=== PATIENT | male | born 1955 | race African-American/Black ===

== ENCOUNTER 2017-06-25 12:37 | Inpatient (IN) | payer BC, OTHER ==
--- NOTE | 2017-06-25 13:10 | PDOC ---
History of Present Illness - General Chief Complaint: Edema Stated Complaint: GROIN PROBLEM Time Seen by Provider: 06/25/17 13:07 - History of Present Illness Initial Comments: 06/25/17 13:11 62 yo M with h/o HTN, DM, asthma, arthritis, Hep C, alcohol dependence, and seizure disorder who presents with lower extremity swelling. Patient reports 3 days BL LE swelling and testicular swelling, and. LE pain worse with ambulation. Denies N/V, fevers/chills, cough, worsening SOB, lightheadedness, new onset sensory changes, urinary, or bowel/adbominal complaints. Also reports falling yesterday while ambulating with cane and landing on left side and head. Denies VEE, laceration, bleeding, vision change, neck pain, neck stiffness, sensory disturbances, weakness. H/o Hep C not on medication. H/o choleycystecotmy. Endorses h/o IV Heroine use 30 years ago. 1/4 PPD tobacco use 50 years. 1/2-1 pint vodka per day for [address] Hernandez PCP Past History - Past Medical History Allergies/Adverse Reactions: Allergies Allergy/AdvReac Type Severity Reaction Status Date / Time fish derived Allergy Severe Difficulty Verified 06/25/17 17:17 Breathing shellfish derived Allergy Severe Difficulty Verified 06/25/17 17:17 Breathing No Known Drug Allergies Allergy Verified 06/25/17 10:10 Penicillins Allergy Verified 06/25/17 12:55 seafood Allergy Severe Difficulty Uncoded 06/25/17 10:09 Breathing Home Medications: Ambulatory Orders Albuterol Sulfate [Proventil HFA Inhaler -] 1 - 2 inh PO QID PRN 06/25/17 Amlodipine Besylate [Norvasc -] 10 mg PO DAILY 06/25/17 Aspirin [Aspirin EC] 325 mg PO DAILY 06/25/17 Gabapentin 300 mg PO HS 06/25/17 Hydrochlorothiazide [Hctz -] 12.5 mg PO DAILY 06/25/17 Hydroxyzine HCl [Atarax -] 50 mg PO HS PRN 06/25/17 Levetiracetam [Keppra -] 500 mg PO BID 06/25/17 Losartan Potassium [Cozaar -] 100 mg PO DAILY 06/25/17 Methadone [Dolophine -] 30 mg PO DAILY 06/25/17 Tamsulosin HCl [Flomax] 0.4 mg PO DAILY 06/25/17 Trazodone HCl [Desyrel -] 100 mg PO HS 06/25/17 Anemia: No Asthma: Yes Cancer: No Cardiac Disorders: No CVA: No COPD: No CHF: No DVT: No Dementia: No Diabetes: No GI Disorders: No Disorders: No HTN: Yes Hypercholesterolemia: No Kidney Stones: No Liver Disease: No Seizures: Yes (11/2 YRS AGO) Thyroid Disease: No - Surgical History Cholecystectomy: Yes - Reproductive History Testicular Surgery: No - Suicide/Smoking/Psychosocial Hx Smoking History: Current every day smoker Have you smoked in the past 12 months: Yes Number of Cigarettes Smoked Daily: 4 Information on smoking cessation initiated: No 'Breaking Loose' booklet given: 06/25/17 Hx Alcohol Use: Yes Drug/Substance Use Hx: No (past on methadone) Substance Use Type: Alcohol Hx Substance Use Treatment: Yes Review of Systems - Review of Systems Comments:: 06/25/17 13:09 GENERAL/CONSTITUTIONAL: No fever or chills. No weakness. HEAD, EYES, EARS, NOSE AND THROAT: No change in vision. No ear pain or discharge. No sore throat.- CARDIOVASCULAR: No chest pain or shortness of breath RESPIRATORY: No cough, wheezing, or hemoptysis. GASTROINTESTINAL: No nausea, vomiting, diarrhea or constipation. GENITOURINARY: + Testicular swelling. No dysuria, frequency, or change in urination. MUSCULOSKELETAL: BL knee pain/swelling. No neck or back pain. SKIN: No rash NEUROLOGIC: No headache, vertigo, loss of consciousness, or change in strength/ sensation. ENDOCRINE: No increased thirst. No abnormal weight change HEMATOLOGIC/LYMPHATIC: No anemia, easy bleeding, or history of blood clots. ALLERGIC/IMMUNOLOGIC: No hives or skin allergy. *Physical Exam - Vital Signs Last Vital Signs Temp Pulse Resp BP Pulse Ox 98.3 F 100 H 20 148/97 93 L 06/25/17 12:55 06/25/17 12:55 06/25/17 12:55 06/25/17 12:55 06/25/17 12:55 - Physical Exam Comments: 06/25/17 13:09 GENERAL: Awake, alert, and fully oriented, in no acute distress HEAD: No signs of trauma, normocephalic, atraumatic EYES:+ Scleral icterus. PERRLA, EOMI, conjunctiva clear ENT: Hearing grossly normal, nares patent, oropharynx clear without exudates. Moist mucosa NECK: Normal ROM, supple, no lymphadenopathy, JVD, or masses LUNGS: +BL lower lung garcia coarse lung sounds. + Expiratory wheezing diffusely. No distress, speaks full sentences, clear to auscultation bilaterally HEART: Regular rate and rhythm, normal S1 and S2, no murmurs, rubs or gallops, peripheral pulses normal and equal bilaterally. ABDOMEN: Distended, soft, nontender, normoactive bowel sounds. No guarding, no rebound. No masses : + Scrotal swelling and painful to palpation. No genital lesions visualized. Absent inguinal lymphadenopathy. EXTREMITIES : + BL LE pitting edema from inguinal region/scrotum to ankles circumferentially. Normal inspection, Normal range of motion, no edema. No clubbing or cyanosis. SKIN: Dry, and scaly skin, normal turgor, no rashes or lesions noted. ED Treatment Course - LABORATORY CBC & Chemistry Diagram: 06/26/17 06:40 06/25/17 16:45 Medical Decision Making - Medical Decision Making 06/25/17 15:30 62 yo M with h/o HTN, DM, asthma, arthritis, Hep C, alcohol dependence, and seizure disorder who presents w/ 3 days BL LE and testicular swelling and pain. LE pain worse with ambulation. Denies N/V, fevers/chills, cough, worsening SOB, lightheadedness, new onset sensory changes, urinary, or bowel/adbominal complaints. 1/2-1 pint vodka per day for 14 years with last drink yesterday. Physical exam with scleral icetrus, distended abdomen, pitting edema in BL LE extending in circumferential pattern from inguinal region/scrotum to BL ankles. lungs with coarse lungs sounds at BL lung bases and diffuse exp wheezing. Slightly hypoxic on RA 93 %. Patient s/s consistent with fluid overload 2/2 hepatitis/hypoalbunemia vs. alcoholic cirrhosis, vs. CHF. Patient h/o alcohol dependence, physical exam findings sclearl icterus, diustended abdomen, skin changes, and swelling consistent with hepatic etiology. ED Course: CBC, CMP, Trop, BNP, Cardiac profile EKG, CXR Methadone 30 mg PO CXR: Linear atelectasis in BL lung bases. No acute findings. 06/25/17 15:38 UA: Neg 06/25/17 18:05 BNP: 335.76 *DC/Admit/Observation/Transfer Diagnosis at time of Disposition: Testicle swelling - Discharge Dispostion Condition at time of disposition: Stable Admit: Yes - Referrals - Patient Instructions - Post Discharge Activity
[2017-06-25] MEDS ORDERED: METHADONE HCL 10 MG TABLET PO ONE (14:57)
[2017-06-25] MEDS ORDERED: METHADONE HCL 10 MG TABLET ONE (14:58)
[2017-06-25 15:06] LABS: URINE APPEARANCE CLEAR; URINE BILIRUBIN NEGATIVE (NEGATIVE); URINE BLOOD NEGATIVE (NEGATIVE); URINE COLOR YELLOW; URINE GLUCOSE (UA) NEGATIVE (NEGATIVE); URINE KETONE NEGATIVE (NEGATIVE); URINE LEUK ESTERASE NEGATIVE (NEGATIVE); URINE NITRITE NEGATIVE (NEGATIVE)
[2017-06-25 15:07] LABS: URINE PROTEIN 3+ (NEGATIVE)
[2017-06-25 15:09] LABS: URINE MUCUS RARE
--- NOTE | 2017-06-25 15:46 | PDOC ---
Attending Attestation - Resident Resident Name: Alec Lugo - ED Attending Attestation I have performed the following: I have examined & evaluated the patient, The case was reviewed & discussed with the resident, I agree w/resident's findings & plan, Exceptions are as noted - HPI HPI: 06/25/17 14:59 62yo M hx HTN, DM, asthma, HCV not on treatment, etoh abuse, IVDU on methadone p /w b/l LE and scrotal swelling x 3 days. Reports pain with ambulation. Has no hx similar sxs. Denies fevers, chills, CP, SOB, abd pain, N/V/D, focal weakness , numbness, urinary complaints. Drinks 0.5-1 pint vodka daily, last drink was yesterday. - Physicial Exam PE: 06/25/17 15:01 GENERAL: Awake, alert, and fully oriented, in no acute distress HEAD: No signs of trauma EYES: PERRLA, EOMI, sclera anicteric, conjunctiva clear ENT: Auricles normal inspection, hearing grossly normal, nares patent, oropharynx clear without exudates. Moist mucosa NECK: Normal ROM, supple, no lymphadenopathy, JVD, or masses LUNGS: Breath sounds equal, clear to auscultation bilaterally. No wheezes, and no crackles HEART: Regular rate and rhythm, normal S1 and S2, no murmurs, rubs or gallops ABDOMEN: Soft, nontender, normoactive bowel sounds. No guarding, no rebound. No masses : b/l scrotal edema with no ttp EXTREMITIES: Normal range of motion, b/l 2+ pitting LE edema, L>R with mild erythema and warmth, 2+ DP pulse and TP pulse. NEUROLOGICAL: Normal speech, cranial nerves intact, negative pronator drift, 5/ 5 strength in all 4 extremities, normal sensation to light touch in all 4 extremities, normal cerebellar exam, normal reflexes and tone, gait deferred SKIN: Warm, Dry, normal turgor, no rashes or lesions noted. - Medical Decision Making 06/25/17 16:08 62-year-old male with multiple medical problems including alcohol abuse presents with 3 days of bilateral lower extremity edema and scrotal edema. Vitals remarkable for mild tachycardia on arrival to 100 but on my exam heart rate is 88. On exam the patient has 2+ pitting edema in the lower extremities left greater than right as well as scrotal edema. Differential is wide and includes edema due to CHF versus liver failure versus DVT.Plan: -labs -LE US -L knee XR -likely admit 06/25/17 20:10 Labs remarkable for creatinine of 1.8 patient reports no history of kidney problems. Labs also remarkable for hypoalbuminemia to 1.8 and mildly elevated BNP to the 300s. Ultrasound is negative for DVT. Edema possibly secondary to liver failure versus mild CHF. Will admit for further management and workup. Case discussed in detail with admitting physician Dr. Velazquez including history , physical exam and ancillary studies. Admitting physician has assumed care for the patient, will follow all pending diagnostics and will complete the evaluation and treatment.
[2017-06-25 17:26] LABS: ALBUMIN 1.8 g/dl (3.4-5.0); ANION GAP 4 (8-16); BLOOD UREA NITROGEN 30 mg/dL (7-18); CALCIUM 7.3 mg/dL (8.5-10.1); CHLORIDE 105 mmol/L (98-107); CO2 32 mmol/L (21-32); CREATININE 1.8 mg/dL (0.7-1.3); GLUCOSE,RANDOM 73 mg/dL (74-106); N-TERMINAL BNP 335.76 pg/ml (5-125); POTASSIUM 4.5 mmol/L (3.5-5.1); SGPT/ALT 58 U/L (12-78); SODIUM 141 mmol/L (136-145)
[2017-06-25 17:33] LABS: ALK PHOS 130 U/L (45-117); BILIRUBIN,TOTAL 0.6 mg/dL (0.2-1.0); SGOT/AST 91 U/L (15-37); TOT PROT 6.3 g/dl (6.4-8.2)
[2017-06-25 17:37] LABS: BASO % 0.2 % (0-2.0); EOS % 1.2 % (0-4.5); HEMATOCRIT 52.1 % (35.4-49); HEMOGLOBIN 16.1 GM/dL (11.7-16.9); LYMPH % 17.9 % (8-40); MCH 25.5 pg (25.7-33.7); MCHC 30.9 g/dl (32.0-35.9); MEAN CELL VOLUME 82.6 fl (80-96); MONO % 8.8 % (3.8-10.2); NEUT % 71.9 % (42.8-82.8); RBC 6.31 M/mm3 (4.00-5.60); RDW 20.1 % (11.9-15.9); WHITE BLOOD COUNT 8.7 K/mm3 (4.0-10.0)
[2017-06-25 17:39] LABS: ADD RBC MORPHOLOGY YES
[2017-06-25 18:22] LABS: MEAN PLT VOLUME 9.2 fl (7.5-11.1); PLATELET COUNT 168 K/MM3 (134-434)
[2017-06-25 18:23] LABS: ANISOCYTOSIS 1+; PLATELET ESTIMATE ADEQUATE
--- NOTE | 2017-06-25 20:03 | PN ---
Teaching Attending Note Name of Resident: Aissatou Gomes ATTENDING PHYSICIAN STATEMENT I saw and evaluated the patient. I reviewed the resident's note and discussed the case with the resident. I agree with the resident's findings and plan as documented. SUBJECTIVE: Patient presented to ED c/o b/l peripheral to scrotal edema from [facility]. Denies CP , SOB or prior episode. PMH: HCV, DM2, HTN and polysubstance abuse. OBJECTIVE: GEN: A&O x3 in NAD HEENT: PERRLA, EOMI no icteric sclera CVS: RRR, S1, S2 LUNG: CTA, no wheezing, tachypneic Abd: obese, BS+, accessory muscle , no fluid shift noted. Ext: b/l pitting edema : Scrotal edema CBC, BMP 06/25/17 16:45 06/25/17 16:45 ASSESSMENT AND PLAN: Fluid overload possibly secondary to cirrhosis secondary to Hepatitis C vs Alcoholic hepatitis. Diuresis with Lasix 40mg BID, Monitor I&Os, hepatitis panel , liver USG. CHF unlikely. MARCE vs CVD Urine electrolytes, and renal USG, repeat BMP in AM. CIWA , Thiamine, Folate and multivitamin. DVT prophylaxis, Heparin 5000 Units q8h. DM2 RISS, A1C
[2017-06-25] MEDS ORDERED: LORazepam 1 MG TABLET PO PRN (22:29)
[2017-06-25] MEDS ORDERED: ALBUTEROL SO4 18 GM HFA INHALER IH PRN (22:33)
[2017-06-25] MEDS ORDERED: hydrOXYzine HCL 25 MG TABLET (FP) PO PRN (22:33)
[2017-06-25 23:10] VITALS: BMI 26.2
[2017-06-25] MEDS: FUROSEMIDE 40 MG/4 ML INJECTABLE VIAL IVPUSH SCH (23:27)
[2017-06-25] MEDS: levETIRAcetam 500 MG TABLET (FP) PO SCH (23:27)
--- NOTE | 2017-06-26 02:47 | HP ---
CHIEF COMPLAINT: pedrito LE and scrotal swelling PCP: Dr. Hernandez HISTORY OF PRESENT ILLNESS: 62yo M with PMH of htn, DM, hep C (not yet treated), polysubstance abuse, presents c/o worsening pedrito LE and scrotal swelling x 1 day. Pt presented to [facility] today for detox from Xanax, and noticing this increasing edema prompted him to come to the ER. Pedrito LE and scrotum are now painful, worse with movement. Pain is described as a soreness, not sharp. Pt also reports a fall yesterday while walking with his cane. Pt denies LOC, but does report hitting his head hard. Pt reports he mis-stepped causing the fall. Pt denies sick contacts. ER course was notable for: (1) Methadone 30mg (2) Head CT (-) Recent Travel: denies PAST MEDICAL HISTORY: htn DM asthma arthritis Hep C seizure etoh dependence PAST SURGICAL HISTORY: cholecystectomy Social History: Smokin cigarettes daily x 50 yrs Alcohol: 1/2 - 1 pint vodka daily x 14 yrs Drugs: Xanax dependence, heroine 30 yrs ago Orientation: heterosexual Family History: dad - colon ca, passed at age 70's mom - DM, cardiac Allergies fish derived Allergy (Severe, Verified 06/25/17 17:17) Difficulty Breathing SEAFOOD = FISH + SHELLFISH shellfish derived Allergy (Severe, Verified 06/25/17 17:17) Difficulty Breathing SEAFOOD = FISH + SHELLFISH No Known Drug Allergies Allergy (Verified 06/25/17 10:10) Penicillins Allergy (Verified 06/25/17 12:55) seafood Allergy (Severe, Uncoded 06/25/17 10:09) Difficulty Breathing HOME MEDICATIONS: Home Medications Medication Instructions Recorded Albuterol Sulfate [Proventil HFA 1 - 2 inh PO QID PRN 06/25/17 Inhaler -] Amlodipine Besylate [Norvasc -] 10 mg PO DAILY 06/25/17 Aspirin [Aspirin EC] 325 mg PO DAILY 06/25/17 Gabapentin 300 mg PO HS 06/25/17 Hydrochlorothiazide [Hctz -] 12.5 mg PO DAILY 06/25/17 Hydroxyzine HCl [Atarax -] 50 mg PO HS PRN 06/25/17 Levetiracetam [Keppra -] 500 mg PO BID 06/25/17 Losartan Potassium [Cozaar -] 100 mg PO DAILY 06/25/17 Methadone [Dolophine -] 30 mg PO DAILY 06/25/17 Tamsulosin HCl [Flomax] 0.4 mg PO DAILY 06/25/17 Trazodone HCl [Desyrel -] 100 mg PO HS 06/25/17 REVIEW OF SYSTEMS CONSTITUTIONAL: Absent: fever, chills, diaphoresis, generalized weakness, malaise, loss of appetite, weight change HEENT: Absent: rhinorrhea, nasal congestion, throat pain, visual changes CARDIOVASCULAR: Absent: chest pain, syncope, palpitations, irregular heart rate, lightheadedness RESPIRATORY: Absent: cough, shortness of breath, wheezing, stridor, hemoptysis GASTROINTESTINAL: abdominal distention Absent: abdominal pain, nausea, vomiting, diarrhea, constipation, melena, hematochezia GENITOURINARY: Absent: dysuria, hematuria MUSCULOSKELETAL: pedrito knee pain and swelling L>R, Left hand joints painful 2/2 arthritis Absent: myalgia, back pain SKIN: Absent: rash, itching, pallor HEMATOLOGIC/IMMUNOLOGIC: Absent: easy bleeding, easy bruising NEUROLOGIC: Absent: headache, focal weakness or paresthesias, dizziness PHYSICAL EXAMINATION Vital Signs - 24 hr 06/25/17 06/25/17 06/25/17 12:55 17:48 17:50 Temperature 98.3 F 97.8 F Pulse Rate 100 H Pulse Rate [ 76 Right Radial] Respiratory 20 20 18 Rate Blood Pressure 148/97 Blood Pressure 143/97 [Left Arm] O2 Sat by Pulse 93 L 96 100 Oximetry (%) 06/25/17 22:35 Temperature 98.2 F Pulse Rate 97 H Pulse Rate [ Right Radial] Respiratory 18 Rate Blood Pressure 148/98 Blood Pressure [Left Arm] O2 Sat by Pulse 100 Oximetry (%) GENERAL: Awake, alert, and fully oriented, anxious. HEAD: Normal with no signs of trauma. EYES: Pupils equal, round and reactive to light, extraocular movements intact, sclera anicteric, conjunctiva clear. No lid lag. EARS, NOSE, THROAT: Ears normal, nares patent, oropharynx clear without exudates. Moist mucous membranes. NECK: Supple, trachea midline. LUNGS: Minimal diffuse wheezing. HEART: Regular rate and rhythm, normal S1 and S2 without murmur, rub or gallop. ABDOMEN: Distended. Soft, nontender, normoactive bowel sounds, no guarding. MUSCULOSKELETAL: Normal range of motion at all joints. No bony deformities or tenderness. LOWER EXTREMITIES: 1+ pitting edema L>R. 2+ pulses, warm, well-perfused. No calf tenderness. : +Scrotal swelling, tenderness to palpation. Slight excoriation of skin in Left fold between scrotum and leg. Testicles approximately equal in size on palpation. NEUROLOGICAL: Cranial nerves II-XII grossly intact. Normal speech. PSYCHIATRIC: Cooperative. Good eye contact. Appropriate mood and affect. SKIN: Warm, dry, normal turgor, no rashes or lesions noted. Laboratory Results - last 24 hr 06/25/17 06/25/17 06/25/17 13:40 16:45 16:45 WBC 8.7 RBC 6.31 H Hgb 16.1 Hct 52.1 H MCV 82.6 MCH 25.5 L MCHC 30.9 L RDW 20.1 H Plt Count 168 MPV 9.2 Neutrophils % 71.9 Lymphocytes % 17.9 Monocytes % 8.8 Eosinophils % 1.2 Basophils % 0.2 Platelet Estimate Adequate Platelet Comment Anisocytosis 1+ Sodium Potassium Chloride Carbon Dioxide Anion Gap BUN Creatinine Creat Clearance w eGFR POC Glucometer Random Glucose Calcium Total Bilirubin AST ALT Alkaline Phosphatase Creatine Kinase 62 Troponin I < 0.02 B-Natriuretic Peptide 335.76 H Total Protein Albumin Urine Color Yellow Urine Appearance Clear Urine pH 6.0 Ur Specific [place] 1.013 Urine Protein 3+ H Urine Glucose (UA) Negative Urine Ketones Negative Urine Blood Negative Urine Nitrite Negative Urine Bilirubin Negative Urine Urobilinogen 2.0 Ur Leukocyte Esterase Negative Urine WBC (Auto) 2 Urine RBC (Auto) 1 Urine Mucus Rare 06/25/17 06/25/17 16:45 22:54 WBC RBC Hgb Hct MCV MCH MCHC RDW Plt Count MPV Neutrophils % Lymphocytes % Monocytes % Eosinophils % Basophils % Platelet Estimate Platelet Comment Anisocytosis Sodium 141 Potassium 4.5 Chloride 105 Carbon Dioxide 32 Anion Gap 4 L BUN 30 H Creatinine 1.8 H Creat Clearance w eGFR 38.18 POC Glucometer 145 Random Glucose 73 L Calcium 7.3 L Total Bilirubin 0.6 AST 91 H ALT 58 Alkaline Phosphatase 130 H Creatine Kinase Troponin I B-Natriuretic Peptide Total Protein 6.3 L Albumin 1.8 L Urine Color Urine Appearance Urine pH Ur Specific [place] Urine Protein Urine Glucose (UA) Urine Ketones Urine Blood Urine Nitrite Urine Bilirubin Urine Urobilinogen Ur Leukocyte Esterase Urine WBC (Auto) Urine RBC (Auto) Urine Mucus IMAGIN06/25/17 CXR -> linear atelectasis and/or scarring in both lung bases. 06/25/[address] -> no acute intracranial pathology. ASSESSMENT/PLAN: 62yo M with PMH of htn, DM, hep C (not yet treated), polysubstance abuse, presents c/o worsening pedrito LE and scrotal swelling, admitted for fluid overload. # fluid overload - likely related to cirrhosis 2/2 hepatitis C vs alcoholic hepatitis. CHF unlikely. - Lasix 40mg IVpush BID - consider adding Spironolactone - I&O's - daily wts - f/u abdominal US - f/u Echo - f/u lipid panel - f/u GGTp # polysubstance abuse - continue Methadone - monitor for S/S of etoh withdrawal - CIWA score 9 -> Ativan prn added - Thiamine, folic acid and MVI added # MARCE vs CKD - baseline unknown - f/u urine electrolytes - f/u renal US # Hepatitis C - f/u Hep C serology; pt is ready to receive treatment if (+) # htn - continue home meds of Norvasc, Losartan, HCTZ # seizure - continue home med of Keppra # asthma - continue home med of Proventil # DM - BGMs ACHS - Novolog SSI - f/u Hgba1c - pt reports hx of peripheral neuropathy to pedrito feet -> continue Neurontin # depression - continue home med of Trazodone # FEN - Fluids: po - Electrolytes: wnl, continue to monitor - Nutrition: diabetic diet # Prophylaxis - DVT ppx with Heparin TID - deconditioning ppx with PT Visit type - Emergency Visit Emergency Visit: Yes ED Registration Date: 06/25/17 Care time: The patient presented to the Emergency Department on the above date and was hospitalized for further evaluation of their emergent condition. - New Patient This patient is new to me today: Yes Date on this admission: 06/26/17 - Critical Care Critical Care patient: No
[2017-06-26] MEDS: METHADONE HCL 10 MG TABLET PO SCH (06:38)
[2017-06-26] MEDS: HEPARIN NA (PORCINE) 5,000 UNITS/ML 1ML VIAL SQ SCH ×3 (06:38→22:09)
[2017-06-26] MEDS: FUROSEMIDE 40 MG/4 ML INJECTABLE VIAL IVPUSH SCH ×2 (06:39→16:06)
[2017-06-26] MEDS: INSULIN SLIDING SCALE (NOVOLOG) 1 VIAL SQ SCH ×4 (06:42→22:33)
[2017-06-26 07:27] LABS: BASO % 0.5 % (0-2.0); HEMATOCRIT 53.8 % (35.4-49); HEMOGLOBIN 16.5 GM/dL (11.7-16.9); LYMPH % 16.5 % (8-40); MCH 25.3 pg (25.7-33.7); MCHC 30.7 g/dl (32.0-35.9); MEAN CELL VOLUME 82.5 fl (80-96); MEAN PLT VOLUME 9.7 fl (7.5-11.1); MONO % 9.5 % (3.8-10.2); NEUT % 71.5 % (42.8-82.8); PLATELET COUNT 191 K/MM3 (134-434); RBC 6.52 M/mm3 (4.00-5.60); RDW 19.8 % (11.9-15.9); WHITE BLOOD COUNT 7.6 K/mm3 (4.0-10.0)
[2017-06-26 07:52] LABS: MAGNESIUM 1.2 mg/dL (1.8-2.4); PHOSPHOROUS 4.7 mg/dL (2.5-4.9)
[2017-06-26 08:05] LABS: INR 0.93 (0.82-1.09); PROTHROMBIN TIME (PATIENT) 10.5 SEC (9.98-11.88)
[2017-06-26 08:08] LABS: ACTIVATED PTT 39.9 SECONDS (26.9-34.4)
--- NOTE | 2017-06-26 09:53 | PN ---
Physical Exam: SUBJECTIVE: Patient seen and examined Partient is feeling better, denies having any abdominal and scrotal pain. C/o having left knee pain due to his fall. Patient was examined with a nurse present in the room (Lisa). Patient states that he fell, that why he has a knee pain. OBJECTIVE: Vital Signs Temperature 98.5 F 06/26/17 06:00 Pulse Rate 98 H 06/26/17 06:00 Respiratory Rate 18 06/26/17 06:00 Blood Pressure 141/84 06/26/17 06:00 O2 Sat by Pulse Oximetry (%) 98 06/25/17 22:36 GENERAL: The patient is awake, alert, and fully oriented, in no acute distress. HEAD: Normal with no signs of trauma. EYES: PERRL, extraocular movements intact, sclera anicteric, conjunctiva clear. No ptosis. ENT: Ears normal, nares patent, oropharynx clear without exudates, moist mucous membranes. NECK: Trachea midline, full range of motion, supple. LUNGS: Breath sounds equal, clear to auscultation bilaterally, no wheezes, no crackles, no accessory muscle use. HEART: Regular rate and rhythm, S1, S2 without murmur, rub or gallop. ABDOMEN: Soft, nontender, nondistended, normoactive bowel sounds, no guarding, no rebound, no hepatosplenomegaly, no masses. EXTREMITIES: 2+ pulses, warm, well-perfused, 2 plus edema left knee tender to touch NEUROLOGICAL: Cranial nerves II through XII grossly intact. Normal speech, gait not observed. PSYCH: Normal mood, normal affect. SKIN: Warm, dry, normal turgor, no rashes or lesions noted : No scrotal swelling noted Active Medications Generic Name Dose Route Start Last Admin Trade Name Freq PRN Reason Stop Dose Admin Albuterol Sulfate 2 puff 06/25/17 22:33 Ventolin Hfa Inhaler - IH Q6H PRN WHEEZING Amlodipine Besylate 10 mg 06/26/17 10:00 Norvasc - PO DAILY [facility] Aspirin 325 mg 06/26/17 10:00 Asa - PO DAILY [facility] Folic Acid 1 mg 06/26/17 10:00 Folic Acid - PO DAILY [facility] Furosemide 40 mg 06/25/17 22:30 06/26/17 06:39 Lasix Injection - IVPUSH 40 mg BID@0600,1400 [facility] Administration Gabapentin 300 mg 06/26/17 22:00 Neurontin - PO HS [facility] Heparin Sodium (Porcine) 5,000 unit 06/26/17 06:00 06/26/17 06:38 Heparin - SQ 5,000 unit TID [facility] Administration Hydrochlorothiazide 12.5 mg 06/26/17 10:00 Hctz - PO DAILY [facility] Hydroxyzine HCl 50 mg 06/25/17 22:33 Atarax - PO HS PRN itching Insulin Aspart 1 vial 06/26/17 07:00 06/26/17 06:42 Novolog Vial Sliding Scale - SQ Not Given ACHS [facility] Protocol Levetiracetam 500 mg 06/25/17 22:45 06/25/17 23:27 Keppra - PO 500 mg BID [facility] Administration Lorazepam 2 mg 06/25/17 22:29 Ativan - PO Q6H PRN WITHDRAWAL(CONT SUBST) Losartan Potassium 100 mg 06/26/17 10:00 Cozaar - PO DAILY [facility] Methadone HCl 30 mg 06/26/17 06:00 06/26/17 06:38 Dolophine - PO 30 mg DAILY@0600 [facility] Administration Multivitamins/Minerals/Vitamin C 1 tab 06/26/17 10:00 Tab-A-Vit - PO DAILY [facility] Tamsulosin HCl 0.4 mg 06/26/17 08:30 Flomax - PO DAILY@0830 [facility] Thiamine HCl 100 mg 06/26/17 10:00 Vitamin B1 - PO DAILY [facility] Trazodone HCl 100 mg 06/26/17 22:00 Desyrel - PO HS [facility] Home Medications Medication Instructions Recorded Albuterol Sulfate [Proventil HFA 1 - 2 inh PO QID PRN 06/25/17 Inhaler -] Amlodipine Besylate [Norvasc -] 10 mg PO DAILY 06/25/17 Aspirin [Aspirin EC] 325 mg PO DAILY 06/25/17 Gabapentin 300 mg PO HS 06/25/17 Hydrochlorothiazide [Hctz -] 12.5 mg PO DAILY 06/25/17 Hydroxyzine HCl [Atarax -] 50 mg PO HS PRN 06/25/17 Levetiracetam [Keppra -] 500 mg PO BID 06/25/17 Losartan Potassium [Cozaar -] 100 mg PO DAILY 06/25/17 Methadone [Dolophine -] 30 mg PO DAILY 06/25/17 Tamsulosin HCl [Flomax] 0.4 mg PO DAILY 06/25/17 Trazodone HCl [Desyrel -] 100 mg PO HS 06/25/17 CBCD WBC 7.6 K/mm3 (4.0-10.0) 06/26/17 06:40 RBC 6.52 M/mm3 (4.00-5.60) H 06/26/17 06:40 Hgb 16.5 GM/dL (11.7-16.9) 06/26/17 06:40 Hct 53.8 % (35.4-49) H 06/26/17 06:40 MCV 82.5 fl (80-96) 06/26/17 06:40 MCHC 30.7 g/dl (32.0-35.9) L 06/26/17 06:40 RDW 19.8 % (11.9-15.9) H 06/26/17 06:40 Plt Count 191 K/MM3 (134-434) 06/26/17 06:40 MPV 9.7 fl (7.5-11.1) 06/26/17 06:40 CMP Sodium 141 mmol/L (136-145) 06/25/17 16:45 Potassium 4.5 mmol/L (3.5-5.1) 06/25/17 16:45 Chloride 105 mmol/L (98-107) 06/25/17 16:45 Carbon Dioxide 32 mmol/L (21-32) 06/25/17 16:45 Anion Gap 4 (8-16) L 06/25/17 16:45 BUN 30 mg/dL (7-18) H 06/25/17 16:45 Creatinine 1.8 mg/dL (0.7-1.3) H 06/25/17 16:45 Creat Clearance w eGFR 38.18 (>60) 06/25/17 16:45 Random Glucose 73 mg/dL (74-106) L 06/25/17 16:45 Calcium 7.3 mg/dL (8.5-10.1) L 06/25/17 16:45 Total Bilirubin 0.6 mg/dL (0.2-1.0) 06/25/17 16:45 AST 91 U/L (15-37) H 06/25/17 16:45 ALT 58 U/L (12-78) 06/25/17 16:45 Alkaline Phosphatase 130 U/L (45-117) H 06/25/17 16:45 Total Protein 6.3 g/dl (6.4-8.2) L 06/25/17 16:45 Albumin 1.8 g/dl (3.4-5.0) L 06/25/17 16:45 CARDIAC ENZYMES Creatine Kinase 62 IU/L (39-308) 06/25/17 16:45 Troponin I < 0.02 ng/ml (0.00-0.05) 06/25/17 16:45 IMAGIN06/25/17 CXR -> linear atelectasis and/or scarring in both lung bases. 06/25/[address] -> no acute intracranial pathology. ASSESSMENT/PLAN: 62yo M with PMH of htn, DM, hep C (not yet treated), polysubstance abuse, presents c/o worsening danilo LE and scrotal swelling, admitted for fluid overload. #Acute fluid overload with hx of liver cirrhosis with possible hepatitis C vs alcoholic hepatitis. on Lasix 40mg IVpush Bid, I&O's, daily weight, f/u Echo, lipid panel. # polysubstance abuse/ alcohol dependency as well on Methadone 30mg continue , continue folic acid and thiamine, on ativan continue. Echo is pending # Acute left knee pain r/o fx,xray of both knees ordered. # MARCE vs CKD baseline unknown, f/u urine electrolytes, f/u renal US # Hepatitis C f/u Hep C serology; pt is ready to receive treatment if (+) # htn continue home meds of Norvasc, Losartan, HCTZ # seizure continue home med of Keppra # hx of asthma continue home med of Proventil # DM BGMs ACHS, Novolog SSI, f/u Hgba1c, pt reports hx of peripheral neuropathy to danilo feet -> continue Neurontin # depression continue home med of Trazodone DVT ppx : Heparin sq PT knee xray ordered, US of scrotal Visit type - Emergency Visit Emergency Visit: Yes ED Registration Date: 06/25/17 Care time: The patient presented to the Emergency Department on the above date and was hospitalized for further evaluation of their emergent condition. - New Patient This patient is new to me today: Yes Date on this admission: 06/26/17 - Critical Care Critical Care patient: No
[2017-06-26] MEDS: levETIRAcetam 500 MG TABLET (FP) PO SCH ×2 (10:36→22:09)
[2017-06-26] MEDS: amLODIPine BESYLATE 10 MG TABLET (FP) PO SCH (10:37)
[2017-06-26] MEDS: HYDROCHLOROTHIAZIDE 12.5 MG CAPSULE (FP) PO SCH (10:37)
[2017-06-26] MEDS: ASPIRIN 325 MG TABLET PO SCH (10:37)
[2017-06-26] MEDS: THIAMINE HCL 100 MG TABLET (FP) PO SCH (10:37)
[2017-06-26] MEDS: MULTIVITAMINS (DAILY MVI) TABLET (FP) PO SCH (10:37)
[2017-06-26] MEDS: FOLIC ACID 1 MG TABLET (FP) PO SCH (10:38)
[2017-06-26] MEDS: TAMSULOSIN HCL 0.4 MG CAP.ER.24H (FP) PO SCH (10:38)
[2017-06-26] MEDS: LOSARTAN POTASSIUM 50 MG TABLET (FP) PO SCH (10:38)
[2017-06-26 10:45] LABS: COCAINE, UR NEGATIVE ng/ml (CUTOFF=300); PHENCYCLIDINE,URINE NEGATIVE ng/ml (CUTOFF=25); URINE AMPHETAMINES NEGATIVE ng/ml (CUTOFF=500); URINE BARBITURATES NEGATIVE ng/ml (CUTOFF=200)
[2017-06-26 10:50] LABS: METHADONE, UR POSITIVE ng/ml (CUTOFF=300); OPIATES, URI POSITIVE ng/ml (CUTOFF=300)
[2017-06-26 10:51] LABS: URINE BENZODIAZEPINES POSITIVE ng/ml (CUTOFF=200)
[2017-06-26] MEDS ORDERED: traZODone HCL 50 MG TABLET (FP) ONE (21:20)
--- NOTE | 2017-06-26 21:31 | CONSULT ---
Consult Detox [facility] Reason for Current Admission/Consult: alcohol and benzodiazepine dependence Referred by:: Chad Pimentel MD - History History of Present Illness: 62 yo m with h/o opioid dependence on MMTP 30mg daily, LDM today, verified admitted to [facility] last week for detox from alcohol and bezodiazepines. Develop increasing scrotal swelling and edema with pain while hospitalized and transferred to [facility] for evaluation where he was admitted and diurese. Now appears dehydrated with scrotoal lump reporte mahsa has completed detox c/o insomnia and requesting bedtime sleep mediation only. anxious about scrotoal lump. - History Source History Provided By: Patient, Medical Record Limitations to Obtaining History: No Limitations - Alcohol/Substance Use Hx Alcohol Use: Yes Hx Substance Use: Yes Hx Substance Use Treatment: Yes (MMTP) - Current Drug/Alcohol Use Alcohol Route: Oral Frequency: Daily Amount used: 1/2 -1 pint Age of first use: 15 Date of Last Use: 06/24/17 Benzodiazepine (Klonopin) Route: Oral Frequency: Daily Amount used: 4mg Age of first use: 44 Date of Last Use: 06/24/17 - Past Medical History Hepatobiliary: Yes: Hepatitis C Renal/: Yes: Renal Inusuff - Past Surgical History Past Surgical History: Yes: None - Significant Medical Findings: 62 yo m admitted to [facility] for evaluation of increasing painful scrotoal eema and for alcohol/benzodiazepine detox, completed detox, medically stable, reporting scrotal lump now detectable CIWA Score - CIWA Score Nausea/Vomitin-No Nausea/No Vomiting Muscle Tremors: None Anxiety: 0-No Anxiety, at Ease Agitation: 0-Normal Activity Paroxysmal Sweats: No Perspiration Orientation: 0-Oriented Tacttile Disturbances: 0-None Auditory Disturbances: 0-None Visual Disturbances: 0-None Assessment Plan - Diagnosis (1) Opioid dependence on agonist therapy Status: Acute (2) Testicle swelling Status: Acute (3) Alcohol dependence with uncomplicated withdrawal Status: Chronic (4) Diabetes mellitus due to underlying condition, controlled Status: Chronic Qualifiers: Diabetes mellitus complication status: without complication Diabetes mellitus rat exterminator insulin use: without chcf use Qualified Code(s): E08.9 - Diabetes mellitus due to underlying condition without complications (5) Hypertension Status: Chronic Qualifiers: Hypertension type: essential hypertension Qualified Code(s): I10 - Essential (primary) hypertension (6) Nicotine dependence Status: Chronic Qualifiers: Nicotine product type: cigarettes Substance use status: uncomplicated Qualified Code(s): F17.210 - Nicotine dependence, cigarettes, uncomplicated (7) Sedative, hypnotic or anxiolytic dependence with withdrawal, uncomplicated Status: Chronic - Plan Plan: 62 yo m with h/o opioid use disorder on MMTP, cont methadone 30mg daily, completed inpatient detox fro alcohol and benzodiazepien withdrwal, sleep medications prescribed may have prn valium as need for withdrawaql, scrotal lump reporte dpost diuresis that needs to be evaluated can transfer to [facility] for rehab if bed available after work up here compelte. Kelli Epperson MD [phone] - Medication Detox Regimen/Protocol: Methadone, Valium
[2017-06-26] MEDS: diazePAM 5 MG TABLET PO SCH (22:09)
[2017-06-26] MEDS: GABAPENTIN 300 MG CAPSULE (FP) PO SCH (22:09)
[2017-06-26] MEDS: traZODone HCL 100 MG TABLET (FP) PO SCH (22:09)
[2017-06-27] MEDS: METHADONE HCL 10 MG TABLET PO SCH (06:06)
[2017-06-27] MEDS: FUROSEMIDE 40 MG/4 ML INJECTABLE VIAL IVPUSH SCH ×2 (06:07→15:24)
[2017-06-27] MEDS: HEPARIN NA (PORCINE) 5,000 UNITS/ML 1ML VIAL SQ SCH ×3 (06:07→21:16)
[2017-06-27] MEDS: INSULIN SLIDING SCALE (NOVOLOG) 1 VIAL SQ SCH ×4 (06:34→21:16)
[2017-06-27] MEDS: HYDROCHLOROTHIAZIDE 12.5 MG CAPSULE (FP) PO SCH (09:47)
[2017-06-27] MEDS: ASPIRIN 325 MG TABLET PO SCH (09:47)
[2017-06-27] MEDS: LOSARTAN POTASSIUM 50 MG TABLET (FP) PO SCH (09:47)
[2017-06-27] MEDS: levETIRAcetam 500 MG TABLET (FP) PO SCH ×2 (09:47→21:16)
[2017-06-27] MEDS: FOLIC ACID 1 MG TABLET (FP) PO SCH (09:48)
[2017-06-27] MEDS: amLODIPine BESYLATE 10 MG TABLET (FP) PO SCH (09:48)
[2017-06-27] MEDS: THIAMINE HCL 100 MG TABLET (FP) PO SCH (09:48)
[2017-06-27] MEDS: MULTIVITAMINS (DAILY MVI) TABLET (FP) PO SCH (09:48)
[2017-06-27] MEDS: TAMSULOSIN HCL 0.4 MG CAP.ER.24H (FP) PO SCH (09:48)
--- NOTE | 2017-06-27 18:02 | PN ---
Progress Note (short form) - Note Progress Note: PAtient is doing well with no acute distress. No headache, no shortness of breath. No fever or chills. Vital Signs Temperature 98.2 F 06/27/17 14:02 Pulse Rate 82 06/27/17 14:02 Respiratory Rate 22 06/27/17 14:02 Blood Pressure 123/73 06/27/17 14:02 O2 Sat by Pulse Oximetry (%) 95 06/27/17 09:00 GENERAL: The patient is awake, alert, and fully oriented, in no acute distress. HEAD: Normal with no signs of trauma. EYES: PERRL, extraocular movements intact, sclera anicteric, conjunctiva clear. No ptosis. ENT: Ears normal, nares patent, oropharynx clear without exudates, moist mucous membranes. NECK: Trachea midline, full range of motion, supple. LUNGS: Breath sounds equal, clear to auscultation bilaterally, no wheezes, no crackles, no accessory muscle use. HEART: Regular rate and rhythm, S1, S2 without murmur, rub or gallop. ABDOMEN: Soft, nontender, nondistended, normoactive bowel sounds, no guarding, no rebound, no hepatosplenomegaly, no masses. EXTREMITIES: 2+ pulses, warm, well-perfused, 1 plus edema , no tenderness today NEUROLOGICAL: Cranial nerves II through XII grossly intact. Normal speech, gait not observed. PSYCH: Normal mood, normal affect. SKIN: Warm, dry, normal turgor, no rashes or lesions noted : No scrotal swelling noted CBCD WBC 7.6 K/mm3 (4.0-10.0) 06/26/17 06:40 RBC 6.52 M/mm3 (4.00-5.60) H 06/26/17 06:40 Hgb 16.5 GM/dL (11.7-16.9) 06/26/17 06:40 Hct 53.8 % (35.4-49) H 06/26/17 06:40 MCV 82.5 fl (80-96) 06/26/17 06:40 MCHC 30.7 g/dl (32.0-35.9) L 06/26/17 06:40 RDW 19.8 % (11.9-15.9) H 06/26/17 06:40 Plt Count 191 K/MM3 (134-434) 06/26/17 06:40 MPV 9.7 fl (7.5-11.1) 06/26/17 06:40 CMP Sodium 141 mmol/L (136-145) 06/25/17 16:45 Potassium 4.5 mmol/L (3.5-5.1) 06/25/17 16:45 Chloride 105 mmol/L (98-107) 06/25/17 16:45 Carbon Dioxide 32 mmol/L (21-32) 06/25/17 16:45 Anion Gap 4 (8-16) L 06/25/17 16:45 BUN 30 mg/dL (7-18) H 06/25/17 16:45 Creatinine 1.8 mg/dL (0.7-1.3) H 06/25/17 16:45 Creat Clearance w eGFR 38.18 (>60) 06/25/17 16:45 Random Glucose 73 mg/dL (74-106) L 06/25/17 16:45 Calcium 7.3 mg/dL (8.5-10.1) L 06/25/17 16:45 Total Bilirubin 0.6 mg/dL (0.2-1.0) 06/25/17 16:45 AST 91 U/L (15-37) H 06/25/17 16:45 ALT 58 U/L (12-78) 06/25/17 16:45 Alkaline Phosphatase 130 U/L (45-117) H 06/25/17 16:45 Total Protein 6.3 g/dl (6.4-8.2) L 06/25/17 16:45 Albumin 1.8 g/dl (3.4-5.0) L 06/25/17 16:45 CARDIAC ENZYMES Creatine Kinase 62 IU/L (39-308) 06/25/17 16:45 Troponin I < 0.02 ng/ml (0.00-0.05) 06/25/17 16:45 Current Medications Generic Name Dose Route Start Last Admin Trade Name Freq PRN Reason Stop Dose Admin Albuterol Sulfate 2 puff 06/25/17 22:33 Ventolin Hfa Inhaler - IH Q6H PRN WHEEZING Amlodipine Besylate 10 mg 06/26/17 10:00 06/27/17 09:48 Norvasc - PO 10 mg DAILY [facility] Administration Aspirin 325 mg 06/26/17 10:00 06/27/17 09:47 Asa - PO 325 mg DAILY [facility] Administration Diazepam 10 mg 06/26/17 22:00 06/26/17 22:09 Valium - PO 10 mg HS [facility] Administration Folic Acid 1 mg 06/26/17 10:00 06/27/17 09:48 Folic Acid - PO 1 mg DAILY [facility] Administration Furosemide 40 mg 06/25/17 22:30 06/27/17 15:24 Lasix Injection - IVPUSH 40 mg BID@0600,1400 [facility] Administration Gabapentin 300 mg 06/26/17 22:00 06/26/17 22:09 Neurontin - PO 300 mg HS [facility] Administration Heparin Sodium (Porcine) 5,000 unit 06/26/17 06:00 06/27/17 15:23 Heparin - SQ 5,000 unit TID [facility] Administration Hydrochlorothiazide 12.5 mg 06/26/17 10:00 06/27/17 09:47 Hctz - PO 12.5 mg DAILY [facility] Administration Hydroxyzine HCl 50 mg 06/25/17 22:33 Atarax - PO HS PRN itching Insulin Aspart 1 vial 06/26/17 07:00 06/27/17 17:28 Novolog Vial Sliding Scale - SQ Not Given ACHS [facility] Protocol Levetiracetam 500 mg 06/25/17 22:45 06/27/17 09:47 Keppra - PO 500 mg BID [facility] Administration Losartan Potassium 100 mg 06/26/17 10:00 06/27/17 09:47 Cozaar - PO 100 mg DAILY [facility] Administration Methadone HCl 30 mg 06/26/17 06:00 06/27/17 06:06 Dolophine - PO 30 mg DAILY@0600 [facility] Administration Multivitamins/Minerals/Vitamin C 1 tab 06/26/17 10:00 06/27/17 09:48 Tab-A-Vit - PO 1 tab DAILY [facility] Administration Tamsulosin HCl 0.4 mg 06/26/17 08:30 06/27/17 09:48 Flomax - PO 0.4 mg DAILY@0830 [facility] Administration Thiamine HCl 100 mg 06/26/17 10:00 06/27/17 09:48 Vitamin B1 - PO 100 mg DAILY [facility] Administration Trazodone HCl 100 mg 06/26/17 22:00 06/26/17 22:09 Desyrel - PO 100 mg HS [facility] Administration Home Medications Medication Instructions Recorded Albuterol Sulfate [Proventil HFA 1 - 2 inh PO QID PRN 06/25/17 Inhaler -] Amlodipine Besylate [Norvasc -] 10 mg PO DAILY 06/25/17 Aspirin [Aspirin EC] 325 mg PO DAILY 06/25/17 Gabapentin 300 mg PO HS 06/25/17 Hydrochlorothiazide [Hctz -] 12.5 mg PO DAILY 06/25/17 Hydroxyzine HCl [Atarax -] 50 mg PO HS PRN 06/25/17 Levetiracetam [Keppra -] 500 mg PO BID 06/25/17 Losartan Potassium [Cozaar -] 100 mg PO DAILY 06/25/17 Methadone [Dolophine -] 30 mg PO DAILY 06/25/17 Tamsulosin HCl [Flomax] 0.4 mg PO DAILY 06/25/17 Trazodone HCl [Desyrel -] 100 mg PO HS 06/25/17 08/26/16 CXR -> linear atelectasis and/or scarring in both lung bases. 06/25/[address] -> no acute intracranial pathology. 06/25/17 Vascular Study -> no DVT to danilo LE 06/26/17 Scrotum US -> small to moderate Right hydrocele 06/26/17 Abd US -> no hydronephrosis. Right renal cortical echogenicity suggestive of medical renal disease. Small amount of perihepatic ascites. Right plerual effusion. Mild hepatomegaly. Mild-moderate splenomegaly. 06/28/17 Echo -> Left ventricle normal in size and systolic function. ASSESSMENT/PLAN: 62yo M with PMH of htn, DM, hep C (not yet treated), polysubstance abuse, presents c/o worsening danilo LE and scrotal swelling, admitted for fluid overload. #Acute fluid overload improving on IV Lasix ; with hx of liver cirrhosis with possible hepatitis C vs alcoholic hepatitis. on Lasix 40mg IV push Bid, I&O's , daily weight continue . Echo normal. # polysubstance abuse/ alcohol dependency as well on Methadone 30mg continue , continue folic acid and thiamine, on ativan continue. # Acute left knee pain r/o fx, xray of both knees ordered are within nl limits. # MARCE vs CKD baseline unknown, f/u urine electrolytes, renal US Right renal cortical echogenicity suggestive of medical renal disease # Hepatitis C f/u Hep C serology; pt is ready to receive treatment if (+) # htn hold Losartan, HCTZ since acute over chronic kidney disease. # seizure continue home med of Keppra # hx of asthma continue home med of Proventil # DM BGMs ACHS, Novolog SSI, f/u Hgba1c, pt reports hx of peripheral neuropathy to danilo feet -> continue Neurontin # depression continue home med of Trazodone DVT ppx : Heparin sq PT Visit type - Emergency Visit Emergency Visit: Yes ED Registration Date: 06/25/17 Care time: The patient presented to the Emergency Department on the above date and was hospitalized for further evaluation of their emergent condition. - New Patient This patient is new to me today: No - Critical Care Critical Care patient: No
[2017-06-27] MEDS ORDERED: traZODone HCL 50 MG TABLET (FP) ONE (21:09)
[2017-06-27] MEDS: GABAPENTIN 300 MG CAPSULE (FP) PO SCH (21:16)
[2017-06-27] MEDS: traZODone HCL 100 MG TABLET (FP) PO SCH (21:16)
[2017-06-27] MEDS: diazePAM 5 MG TABLET PO SCH (21:16)
[2017-06-27] MEDS ORDERED: PT OWN MED DRAWER 7, Y5N ONE (22:04)
[2017-06-28] MEDS: METHADONE HCL 10 MG TABLET PO SCH (05:53)
[2017-06-28] MEDS: FUROSEMIDE 40 MG/4 ML INJECTABLE VIAL IVPUSH SCH (05:54)
[2017-06-28] MEDS: HEPARIN NA (PORCINE) 5,000 UNITS/ML 1ML VIAL SQ SCH ×3 (05:54→22:34)
[2017-06-28] MEDS: INSULIN SLIDING SCALE (NOVOLOG) 1 VIAL SQ SCH ×4 (06:04→22:35)
[2017-06-28 07:41] LABS: ANION GAP 6 (8-16); BLOOD UREA NITROGEN 47 mg/dL (7-18); CALCIUM 8.4 mg/dL (8.5-10.1); CHLORIDE 100 mmol/L (98-107); CO2 37 mmol/L (21-32); GLUCOSE,RANDOM 123 mg/dL (74-106); MAGNESIUM 1.4 mg/dL (1.8-2.4); POTASSIUM 4.6 mmol/L (3.5-5.1); SODIUM 143 mmol/L (136-145); TOT PROT 6.7 g/dl (6.4-8.2)
[2017-06-28 07:45] LABS: ALK PHOS 108 U/L (45-117); BILIRUBIN,TOTAL 0.3 mg/dL (0.2-1.0); CREATININE 2.2 mg/dL (0.7-1.3); PHOSPHOROUS 4.4 mg/dL (2.5-4.9); SGOT/AST 105 U/L (15-37); SGPT/ALT 66 U/L (12-78)
[2017-06-28 08:28] LABS: HEMATOCRIT 54.3 % (35.4-49); HEMOGLOBIN 16.9 GM/dL (11.7-16.9); MCH 25.8 pg (25.7-33.7); MCHC 31.2 g/dl (32.0-35.9); MEAN CELL VOLUME 82.7 fl (80-96); MEAN PLT VOLUME 9.6 fl (7.5-11.1); NEUT % 52.7 % (42.8-82.8); PLATELET COUNT 219 K/MM3 (134-434); RBC 6.56 M/mm3 (4.00-5.60); RDW 20.5 % (11.9-15.9); WHITE BLOOD COUNT 5.6 K/mm3 (4.0-10.0)
[2017-06-28 08:29] LABS: BASO % 0.7 % (0-2.0); EOS % 3.1 % (0-4.5); LYMPH % 34.8 % (8-40); MONO % 8.7 % (3.8-10.2)
[2017-06-28] MEDS: TAMSULOSIN HCL 0.4 MG CAP.ER.24H (FP) PO SCH (09:16)
[2017-06-28] MEDS: FOLIC ACID 1 MG TABLET (FP) PO SCH (09:16)
[2017-06-28] MEDS: levETIRAcetam 500 MG TABLET (FP) PO SCH ×2 (09:16→22:34)
[2017-06-28] MEDS: MULTIVITAMINS (DAILY MVI) TABLET (FP) PO SCH (09:16)
[2017-06-28] MEDS: LOSARTAN POTASSIUM 50 MG TABLET (FP) PO SCH (09:16)
[2017-06-28] MEDS: ASPIRIN 325 MG TABLET PO SCH (09:16)
[2017-06-28] MEDS: THIAMINE HCL 100 MG TABLET (FP) PO SCH (09:16)
[2017-06-28] MEDS: amLODIPine BESYLATE 10 MG TABLET (FP) PO SCH (09:16)
[2017-06-28] MEDS: HYDROCHLOROTHIAZIDE 12.5 MG CAPSULE (FP) PO SCH (09:16)
--- NOTE | 2017-06-28 10:02 | PN ---
Teaching Attending Note Name of Resident: Aissatou Gomes ATTENDING PHYSICIAN STATEMENT I saw and evaluated the patient. I reviewed the resident's note and discussed the case with the resident. I agree with the resident's findings and plan as documented. SUBJECTIVE: Patient is feeling better with no acute distress. OBJECTIVE: Vital Signs Temperature 98.5 F 06/28/17 09:00 Pulse Rate 97 H 06/28/17 09:00 Respiratory Rate 20 06/28/17 09:00 Blood Pressure 124/76 06/28/17 09:00 O2 Sat by Pulse Oximetry (%) 95 06/27/17 21:00 CBCD WBC 5.6 K/mm3 (4.0-10.0) 06/28/17 06:45 RBC 6.56 M/mm3 (4.00-5.60) H 06/28/17 06:45 Hgb 16.9 GM/dL (11.7-16.9) 06/28/17 06:45 Hct 54.3 % (35.4-49) H 06/28/17 06:45 MCV 82.7 fl (80-96) 06/28/17 06:45 MCHC 31.2 g/dl (32.0-35.9) L 06/28/17 06:45 RDW 20.5 % (11.9-15.9) H 06/28/17 06:45 Plt Count 219 K/MM3 (134-434) 06/28/17 06:45 MPV 9.6 fl (7.5-11.1) 06/28/17 06:45 CMP Sodium 143 mmol/L (136-145) 06/28/17 06:45 Potassium 4.6 mmol/L (3.5-5.1) 06/28/17 06:45 Chloride 100 mmol/L (98-107) 06/28/17 06:45 Carbon Dioxide 37 mmol/L (21-32) H 06/28/17 06:45 Anion Gap 6 (8-16) L 06/28/17 06:45 BUN 47 mg/dL (7-18) H D 06/28/17 06:45 Creatinine 2.2 mg/dL (0.7-1.3) H 06/28/17 06:45 Creat Clearance w eGFR 30.28 (>60) 06/28/17 06:45 Random Glucose 123 mg/dL (74-106) H 06/28/17 06:45 Calcium 8.4 mg/dL (8.5-10.1) L 06/28/17 06:45 Total Bilirubin 0.3 mg/dL (0.2-1.0) D 06/28/17 06:45 AST 105 U/L (15-37) H 06/28/17 06:45 ALT 66 U/L (12-78) 06/28/17 06:45 Alkaline Phosphatase 108 U/L (45-117) D 06/28/17 06:45 Total Protein 6.7 g/dl (6.4-8.2) 06/28/17 06:45 Albumin 2.0 g/dl (3.4-5.0) L 06/28/17 06:45 CARDIAC ENZYMES Creatine Kinase 62 IU/L (39-308) 06/25/17 16:45 Troponin I < 0.02 ng/ml (0.00-0.05) 06/25/17 16:45 Current Medications Generic Name Dose Route Start Last Admin Trade Name Freq PRN Reason Stop Dose Admin Albuterol Sulfate 2 puff 06/25/17 22:33 Ventolin Hfa Inhaler - IH Q6H PRN WHEEZING Amlodipine Besylate 10 mg 06/26/17 10:00 06/28/17 09:16 Norvasc - PO 10 mg DAILY [facility] Administration Aspirin 325 mg 06/26/17 10:00 06/28/17 09:16 Asa - PO 325 mg DAILY [facility] Administration Diazepam 10 mg 06/26/17 22:00 06/27/17 21:16 Valium - PO 10 mg HS [facility] Administration Folic Acid 1 mg 06/26/17 10:00 06/28/17 09:16 Folic Acid - PO 1 mg DAILY [facility] Administration Furosemide 40 mg 06/25/17 22:30 06/28/17 05:54 Lasix Injection - IVPUSH 40 mg BID@0600,1400 [facility] Administration Gabapentin 300 mg 06/26/17 22:00 06/27/17 21:16 Neurontin - PO 300 mg HS [facility] Administration Heparin Sodium (Porcine) 5,000 unit 06/26/17 06:00 06/28/17 05:54 Heparin - SQ 5,000 unit TID [facility] Administration Hydrochlorothiazide 12.5 mg 06/26/17 10:00 06/28/17 09:16 Hctz - PO 12.5 mg DAILY [facility] Administration Hydroxyzine HCl 50 mg 06/25/17 22:33 Atarax - PO HS PRN itching Insulin Aspart 1 vial 06/26/17 07:00 06/28/17 06:04 Novolog Vial Sliding Scale - SQ Not Given ACHS [facility] Protocol Levetiracetam 500 mg 06/25/17 22:45 06/28/17 09:16 Keppra - PO 500 mg BID [facility] Administration Losartan Potassium 100 mg 06/26/17 10:00 06/28/17 09:16 Cozaar - PO 100 mg DAILY [facility] Administration Methadone HCl 30 mg 06/26/17 06:00 06/28/17 05:53 Dolophine - PO 30 mg DAILY@0600 [facility] Administration Multivitamins/Minerals/Vitamin C 1 tab 06/26/17 10:00 06/28/17 09:16 Tab-A-Vit - PO 1 tab DAILY [facility] Administration Tamsulosin HCl 0.4 mg 06/26/17 08:30 06/28/17 09:16 Flomax - PO 0.4 mg DAILY@0830 [facility] Administration Thiamine HCl 100 mg 06/26/17 10:00 06/28/17 09:16 Vitamin B1 - PO 100 mg DAILY [facility] Administration Trazodone HCl 100 mg 06/26/17 22:00 06/27/17 21:16 Desyrel - PO 100 mg HS [facility] Administration Home Medications Medication Instructions Recorded Albuterol Sulfate [Proventil HFA 1 - 2 inh PO QID PRN 06/25/17 Inhaler -] Amlodipine Besylate [Norvasc -] 10 mg PO DAILY 06/25/17 Aspirin [Aspirin EC] 325 mg PO DAILY 06/25/17 Gabapentin 300 mg PO HS 06/25/17 Hydrochlorothiazide [Hctz -] 12.5 mg PO DAILY 06/25/17 Hydroxyzine HCl [Atarax -] 50 mg PO HS PRN 06/25/17 Levetiracetam [Keppra -] 500 mg PO BID 06/25/17 Losartan Potassium [Cozaar -] 100 mg PO DAILY 06/25/17 Methadone [Dolophine -] 30 mg PO DAILY 06/25/17 Tamsulosin HCl [Flomax] 0.4 mg PO DAILY 06/25/17 Trazodone HCl [Desyrel -] 100 mg PO HS 06/25/17 PE: per resident's note. 08/26/16 CXR -> linear atelectasis and/or scarring in both lung bases. 06/25/[address] -> no acute intracranial pathology. 06/25/17 Vascular Study -> no DVT to danilo LE 06/26/17 Scrotum US -> small to moderate Right hydrocele 06/26/17 Abd US -> no hydronephrosis. Right renal cortical echogenicity suggestive of medical renal disease. Small amount of perihepatic ascites. Right plerual effusion. Mild hepatomegaly. Mild-moderate splenomegaly. 06/28/17 Echo -> Left ventricle normal in size and systolic function. ASSESSMENT/PLAN: 62yo M with PMH of htn, DM, hep C (not yet treated), polysubstance abuse, presents c/o worsening danilo LE and scrotal swelling, admitted for fluid overload. #Acute fluid overload improving on IV Lasix ; with hx of liver cirrhosis with possible hepatitis C vs alcoholic hepatitis. on Lasix 40mg IV push Bid will switch to po Lasix , I&O's, daily weight continue . Echo normal. # polysubstance abuse/ alcohol dependency as well on Methadone 30mg continue , continue folic acid and thiamine, on ativan continue. # Acute left knee pain r/o fx, xray of both knees ordered are within nl limits. # MARCE over CKD as per nephro to hold Hctz only for now. f/u urine electrolytes , renal US Right renal cortical echogenicity suggestive of medical renal disease # Hepatitis C f/u Hep C serology; pt is ready to receive treatment if (+) # htn hold Losartan, HCTZ since acute over chronic kidney disease. # seizure continue home med of Keppra # hx of asthma continue home med of Proventil # DM BGMs ACHS, Novolog SSI, f/u Hgba1c, pt reports hx of peripheral neuropathy to danilo feet -> continue Neurontin # depression continue home med of Trazodone DVT ppx : Heparin sq PT arranging inpatient detox
[2017-06-28] MEDS ORDERED: MAGNESIUM OXIDE 400 MG TABLET (FP) PO ONE ×2 (10:08→13:00)
[2017-06-28] MEDS ORDERED: INSULIN (NOVOLOG) ASPART 100 UNITS/ML 10ML VIAL ONE (11:36)
--- NOTE | 2017-06-28 12:13 | CONSULT ---
Consult Consult Specialty:: Nephrology Reason for Consultation:: worsening renal failure - History of Present Illness Chief Complaint: lower ext edema History of Present Illness: Pt is a 62 year old male with pmhx of HTN, DM, asthma, arthritic, alcohol dependence, epilepsy and Hep C (untreated) who presents to the ER complaining of lower extremity edema. He says that it has been going on for about 3 to 4 days before admission. He denies dysuria or hematuria. He denies nsaid use. He lives in [place] but is in [place] for rehab. He has history of substance abuse. He denies history of kidney disease. He denies flank pain. He says that he has had lower ext edema in the past. 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 Cardio/Vascular: Yes: HTN Pulmonary: Yes: Asthma Hepatobiliary: Yes: Hepatitis C Endocrine: Yes: Diabetes Mellitus - Alcohol/Substance Use Hx Alcohol Use: Yes History of Substance Use: reports: Heroin - Smoking History Smoking history: Current every day smoker Have you smoked in the past 12 months: Yes Aproximately how many cigarettes per day: 4 Home Medications - Allergies Allergies/Adverse Reactions: Allergies Allergy/AdvReac Type Severity Reaction Status Date / Time fish derived Allergy Severe Difficulty Verified 06/25/17 17:17 Breathing shellfish derived Allergy Severe Difficulty Verified 06/25/17 17:17 Breathing No Known Drug Allergies Allergy Verified 06/25/17 10:10 Penicillins Allergy Verified 06/25/17 12:55 seafood Allergy Severe Difficulty Uncoded 06/25/17 10:09 Breathing - Home Medications Home Medications: Ambulatory Orders Albuterol Sulfate [Proventil HFA Inhaler -] 1 - 2 inh PO QID PRN 06/25/17 Amlodipine Besylate [Norvasc -] 10 mg PO DAILY 06/25/17 Aspirin [Aspirin EC] 325 mg PO DAILY 06/25/17 Gabapentin 300 mg PO HS 06/25/17 Hydrochlorothiazide [Hctz -] 12.5 mg PO DAILY 06/25/17 Hydroxyzine HCl [Atarax -] 50 mg PO HS PRN 06/25/17 Levetiracetam [Keppra -] 500 mg PO BID 06/25/17 Losartan Potassium [Cozaar -] 100 mg PO DAILY 06/25/17 Methadone [Dolophine -] 30 mg PO DAILY 06/25/17 Tamsulosin HCl [Flomax] 0.4 mg PO DAILY 06/25/17 Trazodone HCl [Desyrel -] 100 mg PO HS 06/25/17 Family Disease History - Family Disease History Family History: Denies Review of Systems - Review of Systems Constitutional: reports: No Symptoms Eyes: reports: No Symptoms HENT: reports: No Symptoms Neck: reports: No Symptoms Cardiovascular: reports: Edema Respiratory: reports: SOB on Exertion Gastrointestinal: reports: No Symptoms Genitourinary: reports: No Symptoms Musculoskeletal: reports: No Symptoms Integumentary: reports: No Symptoms Neurological: reports: No Symptoms Endocrine: reports: No Symptoms Hematology/Lymphatic: reports: No Symptoms Physical Exam Vital Signs: Vital Signs Temperature 98.5 F 06/28/17 09:00 Pulse Rate 97 H 06/28/17 09:00 Respiratory Rate 20 06/28/17 09:00 Blood Pressure 124/76 06/28/17 09:00 O2 Sat by Pulse Oximetry (%) 95 06/27/17 21:00 Constitutional: Yes: Calm Eyes: Yes: Conjunctiva Clear HENT: Yes: Atraumatic Neck: Yes: Supple Cardiovascular: Yes: S1, S2 Respiratory: Yes: CTA Bilaterally Gastrointestinal: Yes: Soft Renal/: Yes: WNL Musculoskeletal: Yes: WNL Edema: Yes Edema: LLE: 1+, RLE: 1+ Integumentary: Yes: Venous Stasis Changes Neurological: Yes: Oriented Psychiatric: Yes: Oriented Labs: CBC, BMP 06/28/17 06:45 06/28/17 06:45 Laboratory Tests 06/25/17 06/25/17 06/25/17 13:40 16:45 16:45 Hgb 16.1 Sodium Potassium Chloride Creatinine B-Natriuretic Peptide 335.76 H Urine Protein 3+ H Opiates Screen Methadone Screen Benzodiazepines Screen Hepatitis C Antibody HCV Quantitation HCV RNA PCR log photostatic copy maker/ml 06/25/17 06/26/17 06/26/17 16:45 06:05 06:40 Hgb 16.5 Sodium Potassium Chloride Creatinine 1.8 H 2.0 H B-Natriuretic Peptide Urine Protein Opiates Screen Methadone Screen Benzodiazepines Screen Hepatitis C Antibody HCV Quantitation HCV RNA PCR log photostatic copy maker/ml 06/26/17 06/26/17 06/26/17 07:00 10:00 12:00 Hgb Sodium Potassium Chloride Creatinine B-Natriuretic Peptide Urine Protein Opiates Screen Positive Methadone Screen Positive Benzodiazepines Screen Positive Hepatitis C Antibody >11.0 H HCV Quantitation Pending HCV RNA PCR log photostatic copy maker/ml Pending 06/28/17 06/28/17 06:45 06:45 Hgb 16.9 Sodium 143 Potassium 4.6 Chloride 100 Creatinine 2.2 H B-Natriuretic Peptide Urine Protein Opiates Screen Methadone Screen Benzodiazepines Screen Hepatitis C Antibody HCV Quantitation HCV RNA PCR log photostatic copy maker/ml Imaging - Results Ultrasound: Report Reviewed (negative hydro) Problem List - Problems (1) CKD (chronic kidney disease) Code(s): N18.9 - CHRONIC KIDNEY DISEASE, UNSPECIFIED (2) Opioid dependence on agonist therapy Code(s): F11.20 - OPIOID DEPENDENCE, UNCOMPLICATED (3) Testicle swelling Code(s): N50.89 - OTHER SPECIFIED DISORDERS OF THE MALE GENITAL ORGANS (4) Alcohol dependence with uncomplicated withdrawal Code(s): F10.230 - ALCOHOL DEPENDENCE WITH WITHDRAWAL, UNCOMPLICATED (5) Hypertension Code(s): I10 - ESSENTIAL (PRIMARY) HYPERTENSION Qualifiers: Hypertension type: essential hypertension Qualified Code(s): I10 - Essential (primary) hypertension Assessment/Plan Current Medications Generic Name Dose Route Start Last Admin Trade Name Freq PRN Reason Stop Dose Admin Albuterol Sulfate 2 puff 06/25/17 22:33 Ventolin Hfa Inhaler - IH Q6H PRN WHEEZING Aspirin 325 mg 06/26/17 10:00 06/28/17 09:16 Asa - PO 325 mg DAILY SARMAD Administration Diazepam 10 mg 06/26/17 22:00 06/27/17 21:16 Valium - PO 10 mg HS SARMAD Administration Diazepam 10 mg 06/28/17 12:49 Valium - PO 07/01/17 12:50 Q4H PRN WITHDRAWAL(CONT SUBST) Furosemide 40 mg 06/25/17 22:30 06/28/17 05:54 Lasix Injection - IVPUSH 40 mg BID@0600,1400 SARMAD Administration Gabapentin 300 mg 06/26/17 22:00 06/27/17 21:16 Neurontin - PO 300 mg HS SARMAD Administration Heparin Sodium (Porcine) 5,000 unit 06/26/17 06:00 06/28/17 05:54 Heparin - SQ 5,000 unit TID SARMAD Administration Insulin Aspart 1 vial 06/26/17 07:00 06/28/17 11:39 Novolog Vial Sliding Scale - SQ 8 units ACHS SARMAD Administration Protocol Labetalol HCl 100 mg 06/28/17 10:15 06/28/17 12:32 Normodyne - PO 100 mg BID SARMAD Administration Levetiracetam 500 mg 06/25/17 22:45 06/28/17 09:16 Keppra - PO 500 mg BID SARMAD Administration Methadone HCl 30 mg 06/26/17 06:00 06/28/17 05:53 Dolophine - PO 30 mg DAILY@0600 SARMAD Administration Multivit/Folic Acid/Iron 1 tab 06/28/17 13:00 Vitamins (Sjr) - PO DAILY SARMAD Tamsulosin HCl 0.4 mg 06/26/17 08:30 06/28/17 09:16 Flomax - PO 0.4 mg DAILY@0830 SARMAD Administration Thiamine HCl 100 mg 06/28/17 22:00 Vitamin B1 - PO HS SARMAD Trazodone HCl 100 mg 06/26/17 22:00 06/27/17 21:16 Desyrel - PO 100 mg HS SARMAD Administration Zolpidem Tartrate 10 mg 06/28/17 12:48 Ambien - PO HS PRN INSOMNIA Laboratory Tests 06/25/17 06/25/17 13:40 16:45 B-Natriuretic Peptide 335.76 H Urine Protein 3+ H Impression 1. likely CKD with acute component 2. HTN 3. polysubstance abuse 4. BPH 5. DM 6. epilepsy 7. asthma 8. proteinuria 9. Hep C Plan - reviewed renal ultrasound and he does have echogenic kidneys. Pt likely has CKD. Would need to obtain outpt records from [facility] to compare baseline creatinine - BNP is elevated but not overly impressive - lower ext ultrasound neg for dvt - check echo - can switch lasix over to PO - hold thiazide - send urine prt to music pastor ratio - follow up hep C studies - will need renal workup and possibly kidney biopsy in the future - will follow Dr Farmer
[2017-06-28] MEDS: LABETALOL HCL 100 MG TABLET (FP) PO SCH ×2 (12:32→22:33)
[2017-06-28] MEDS ORDERED: ZOLPIDEM TARTRATE 5 MG TABLET PO PRN (12:48)
[2017-06-28] MEDS ORDERED: diazePAM 5 MG TABLET PO PRN (12:49)
[2017-06-28] MEDS ORDERED: PT OWN MED DRAWER 7, Y5N ONE (14:20)
[2017-06-28] MEDS: PRENATAL VITAMINS W/ FOLIC ACID TABLET (FP) PO SCH (15:20)
[2017-06-28 19:22] LABS: RATIO URIN PROTEIN/URIN CREAT 3.125 MG/DL
--- NOTE | 2017-06-28 20:19 | PN ---
Physical Exam: SUBJECTIVE: Patient seen and examined. Pt denies chest pain, abdominal pain, sob, headache, fever, chills. No events overnight. OBJECTIVE: Vital Signs Period Temp Pulse Resp BP Sys/Conte Pulse Ox Last 24 Hr 98.3 F-98.5 F 75-97 18-22 111-132/69-86 92-95 GENERAL: Awake, alert, and fully oriented. LUNGS: CTAB. HEART: Regular rate and rhythm, normal S1 and S2 without murmur, rub or gallop. ABDOMEN: Soft, nontender, nondistended. LOWER EXTREMITIES: 1+ pitting edema. Warm, well-perfused. No calf tenderness. NEUROLOGICAL: Cranial nerves II-XII grossly intact. Normal speech. Gait steady. PSYCHIATRIC: Cooperative. Good eye contact. Appropriate mood and affect. Laboratory Results - last 24 hr 06/28/17 06/28/17 06/28/17 05:49 06:45 06:45 WBC 5.6 RBC 6.56 H Hgb 16.9 Hct 54.3 H MCV 82.7 MCH 25.8 MCHC 31.2 L RDW 20.5 H Plt Count 219 MPV 9.6 Neutrophils % 52.7 D Lymphocytes % 34.8 D Monocytes % 8.7 Eosinophils % 3.1 Basophils % 0.7 Sodium 143 Potassium 4.6 Chloride 100 Carbon Dioxide 37 H Anion Gap 6 L BUN 47 H D Creatinine 2.2 H Creat Clearance w eGFR 30.28 POC Glucometer 87 Random Glucose 123 H Calcium 8.4 L Phosphorus 4.4 Magnesium 1.4 L Total Bilirubin 0.3 D AST 105 H ALT 66 Alkaline Phosphatase 108 D Total Protein 6.7 Albumin 2.0 L U Random Total Protein Urine Creatinine Protein/Creatinin Ratio 06/28/17 06/28/17 06/28/17 11:28 16:31 18:00 WBC RBC Hgb Hct MCV MCH MCHC RDW Plt Count MPV Neutrophils % Lymphocytes % Monocytes % Eosinophils % Basophils % Sodium Potassium Chloride Carbon Dioxide Anion Gap BUN Creatinine Creat Clearance w eGFR POC Glucometer 335 90 Random Glucose Calcium Phosphorus Magnesium Total Bilirubin AST ALT Alkaline Phosphatase Total Protein Albumin U Random Total Protein 275 H Urine Creatinine 88.0 Protein/Creatinin Ratio 3.125 Active Medications Generic Name Dose Route Start Last Admin Trade Name Freq PRN Reason Stop Dose Admin Albuterol Sulfate 2 puff 06/25/17 22:33 Ventolin Hfa Inhaler - IH Q6H PRN WHEEZING Aspirin 325 mg 06/26/17 10:00 06/28/17 09:16 Asa - PO 325 mg DAILY SARMAD Administration Diazepam 10 mg 06/26/17 22:00 06/27/17 21:16 Valium - PO 10 mg HS SARMAD Administration Diazepam 10 mg 06/28/17 12:49 Valium - PO 07/01/17 12:50 Q4H PRN WITHDRAWAL(CONT SUBST) Furosemide 40 mg 06/25/17 22:30 06/28/17 05:54 Lasix Injection - IVPUSH 40 mg BID@0600,1400 SARMAD Administration Gabapentin 300 mg 06/26/17 22:00 06/27/17 21:16 Neurontin - PO 300 mg HS SARMAD Administration Heparin Sodium (Porcine) 5,000 unit 06/26/17 06:00 06/28/17 15:21 Heparin - SQ 5,000 unit TID SARMAD Administration Insulin Aspart 1 vial 06/26/17 07:00 06/28/17 16:32 Novolog Vial Sliding Scale - SQ Not Given ACHS [facility] Protocol Labetalol HCl 100 mg 06/28/17 10:15 06/28/17 12:32 Normodyne - PO 100 mg BID SARMAD Administration Levetiracetam 500 mg 06/25/17 22:45 06/28/17 09:16 Keppra - PO 500 mg BID SARMAD Administration Methadone HCl 30 mg 06/26/17 06:00 06/28/17 05:53 Dolophine - PO 30 mg DAILY@0600 SARMAD Administration Multivit/Folic Acid/Iron 1 tab 06/28/17 13:00 06/28/17 15:20 Vitamins (Sjr) - PO 1 tab DAILY SARMAD Administration Tamsulosin HCl 0.4 mg 06/26/17 08:30 06/28/17 09:16 Flomax - PO 0.4 mg DAILY@0830 SARMAD Administration Thiamine HCl 100 mg 06/28/17 22:00 Vitamin B1 - PO HS SARMAD Trazodone HCl 100 mg 06/26/17 22:00 06/27/17 21:16 Desyrel - PO 100 mg HS SARMAD Administration Zolpidem Tartrate 10 mg 06/28/17 12:48 Ambien - PO HS PRN INSOMNIA IMAGIN06/25/17 Vascular Study -> no DVT to danilo LE 06/26/17 Scrotum US -> small to moderate Right hydrocele 06/26/17 Abd US -> no hydronephrosis. Right renal cortical echogenicity suggestive of medical renal disease. Small amount of perihepatic ascites. Right plerual effusion. Mild hepatomegaly. Mild-moderate splenomegaly. 06/28/17 Echo -> Left ventricle normal in size and systolic function. ASSESSMENT/PLAN: 62yo M with PMH of htn, DM, hep C (not yet treated), polysubstance abuse, presents c/o worsening danilo LE and scrotal swelling, admitted for fluid overload. # fluid overload - likely related to cirrhosis 2/2 hepatitis C vs alcoholic hepatitis. - Lasix 40mg IVpush BID - consider adding Spironolactone - I&O's - daily wts # polysubstance abuse - continue Methadone - monitor for S/S of etoh withdrawal - Detox (Dr. Epperson) recs appreciated - continue thiamine, folic acid and MVI # CKD vs MARCE - baseline unknown; based on Renal US results -> likely CKD - Nephrology (Dr. Farmer) recs appreciated: hold thiazide - will likely need renal workup and possibly a kidney biopsy in the future # Hepatitis C - f/u Hep C serology # htn - Labetalol BID # seizure - continue home med of Keppra # asthma - continue home med of Proventil # DM - BGMs ACHS - Novolog SSI - pt reports hx of peripheral neuropathy to danilo feet -> continue Neurontin # depression - continue home med of Trazodone # FEN - Fluids: po - Electrolytes: wnl, continue to monitor - Nutrition: diabetic diet # Prophylaxis - DVT ppx with Heparin TID - deconditioning ppx with PT Visit type - Emergency Visit Emergency Visit: Yes ED Registration Date: 06/25/17 Care time: The patient presented to the Emergency Department on the above date and was hospitalized for further evaluation of their emergent condition. - New Patient This patient is new to me today: No - Critical Care Critical Care patient: No
[2017-06-28] MEDS ORDERED: traZODone HCL 50 MG TABLET (FP) ONE (21:38)
[2017-06-28] MEDS ORDERED: THIAMINE HCL 100 MG TABLET (FP) PO SCH (22:00)
[2017-06-28] MEDS: traZODone HCL 100 MG TABLET (FP) PO SCH (22:32)
[2017-06-28] MEDS: diazePAM 5 MG TABLET PO SCH (22:33)
[2017-06-28] MEDS: GABAPENTIN 300 MG CAPSULE (FP) PO SCH (22:34)
[2017-06-29] MEDS: METHADONE HCL 10 MG TABLET PO SCH (06:06)
[2017-06-29] MEDS: HEPARIN NA (PORCINE) 5,000 UNITS/ML 1ML VIAL SQ SCH ×2 (06:11→14:10)
[2017-06-29] MEDS: INSULIN SLIDING SCALE (NOVOLOG) 1 VIAL SQ SCH ×3 (06:16→16:56)
[2017-06-29 07:55] LABS: CALCIUM 7.8 mg/dL (8.5-10.1); CHLORIDE 99 mmol/L (98-107); POTASSIUM 4.5 mmol/L (3.5-5.1); SODIUM 138 mmol/L (136-145)
[2017-06-29 07:58] LABS: ANION GAP 6 (8-16); BLOOD UREA NITROGEN 62 mg/dL (7-18); CO2 33 mmol/L (21-32); CREATININE 2.2 mg/dL (0.7-1.3); GLUCOSE,RANDOM 154 mg/dL (74-106)
[2017-06-29] MEDS ORDERED: PT OWN MED DRAWER 7, Y5N ONE (09:00)
[2017-06-29] MEDS: PRENATAL VITAMINS W/ FOLIC ACID TABLET (FP) PO SCH (09:02)
[2017-06-29] MEDS: TAMSULOSIN HCL 0.4 MG CAP.ER.24H (FP) PO SCH (09:02)
[2017-06-29] MEDS: levETIRAcetam 500 MG TABLET (FP) PO SCH (09:02)
[2017-06-29] MEDS: ASPIRIN 325 MG TABLET PO SCH (09:02)
[2017-06-29] MEDS: LABETALOL HCL 100 MG TABLET (FP) PO SCH (09:02)
--- NOTE | 2017-06-29 11:08 | CON.GI ---
Consult Consult Specialty:: GI - History of Present Illness History of Present Illness: 62 [address] [facility]. Hx of HTN, DM, HCV, hx of drug abuse, presents to ED with LE edema of 1 day duration. No history of HCV treatment, liver cirrhosis. Deneis fever, chills, nausea, vomiting, melena, hematochezia, hematemesis, fluctuating abdominal girth, yellowing of the eyes, episodes of disorientation, tremors, hair loss. 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 Cardio/Vascular: Yes: HTN Pulmonary: Yes: Asthma Hepatobiliary: Yes: Hepatitis C Renal/: Yes: Renal Inusuff Endocrine: Yes: Diabetes Mellitus - Past Surgical History Past Surgical History: Yes: None - Alcohol/Substance Use Hx Alcohol Use: Yes History of Substance Use: reports: Heroin - Smoking History Smoking history: Current every day smoker Have you smoked in the past 12 months: Yes Aproximately how many cigarettes per day: 4 Home Medications - Allergies Allergies/Adverse Reactions: Allergies Allergy/AdvReac Type Severity Reaction Status Date / Time fish derived Allergy Severe Difficulty Verified 06/25/17 17:17 Breathing shellfish derived Allergy Severe Difficulty Verified 06/25/17 17:17 Breathing No Known Drug Allergies Allergy Verified 06/25/17 10:10 Penicillins Allergy Verified 06/25/17 12:55 seafood Allergy Severe Difficulty Uncoded 06/25/17 10:09 Breathing - Home Medications Home Medications: Ambulatory Orders Albuterol Sulfate [Proventil HFA Inhaler -] 1 - 2 inh PO QID PRN 06/25/17 Amlodipine Besylate [Norvasc -] 10 mg PO DAILY 06/25/17 Aspirin [Aspirin EC] 325 mg PO DAILY 06/25/17 Gabapentin 300 mg PO HS 06/25/17 Hydrochlorothiazide [Hctz -] 12.5 mg PO DAILY 06/25/17 Hydroxyzine HCl [Atarax -] 50 mg PO HS PRN 06/25/17 Levetiracetam [Keppra -] 500 mg PO BID 06/25/17 Losartan Potassium [Cozaar -] 100 mg PO DAILY 06/25/17 Methadone [Dolophine -] 30 mg PO DAILY 06/25/17 Tamsulosin HCl [Flomax] 0.4 mg PO DAILY 12/08/17 Trazodone HCl [Desyrel -] 100 mg PO HS 06/25/17 Family Disease History - Family Disease History Family History: Unremarkable Review of Systems Findings/Remarks: please refer to H&P Physical Exam-GI Vital Signs: Vital Signs Temperature 98.5 F 06/29/17 06:00 Pulse Rate 79 06/29/17 06:00 Respiratory Rate 18 06/29/17 06:00 Blood Pressure 131/82 06/29/17 06:00 O2 Sat by Pulse Oximetry (%) 97 06/28/17 21:00 Constitutional: Yes: No Distress, Calm Eyes: Yes: Conjunctiva Clear HENT: Yes: Atraumatic Neck: Yes: Supple Cardiovascular: Yes: Regular Rate and Rhythm Respiratory: Yes: Regular Gastrointestinal Inspection: No: Ascites, Distention ...Auscultate: Yes: Normoactive Bowel Sounds ...Palpate: Yes: Soft. No: Firm/Rigid, Guarding, Mass, Tenderness Neurological: Yes: Alert, Oriented Labs: CBC, BMP 06/28/17 06:45 06/29/17 07:10 INR, PTT INR 0.93 (0.82-1.09) 06/26/17 06:40 Abnormal Lab Results 06/28/17 06/29/17 18:00 07:10 Carbon Dioxide 33 H Anion Gap 6 L BUN 62 H D Creatinine 2.2 H Random Glucose 154 H D Calcium 7.8 L U Random Total Protein 275 H CBCD WBC 5.6 K/mm3 (4.0-10.0) 06/28/17 06:45 RBC 6.56 M/mm3 (4.00-5.60) H 06/28/17 06:45 Hgb 16.9 GM/dL (11.7-16.9) 06/28/17 06:45 Hct 54.3 % (35.4-49) H 06/28/17 06:45 MCV 82.7 fl (80-96) 06/28/17 06:45 MCHC 31.2 g/dl (32.0-35.9) L 06/28/17 06:45 RDW 20.5 % (11.9-15.9) H 06/28/17 06:45 Plt Count 219 K/MM3 (134-434) 06/28/17 06:45 MPV 9.6 fl (7.5-11.1) 06/28/17 06:45 CMP Sodium 138 mmol/L (136-145) 06/29/17 07:10 Potassium 4.5 mmol/L (3.5-5.1) 06/29/17 07:10 Chloride 99 mmol/L (98-107) 06/29/17 07:10 Carbon Dioxide 33 mmol/L (21-32) H 06/29/17 07:10 Anion Gap 6 (8-16) L 06/29/17 07:10 BUN 62 mg/dL (7-18) H D 06/29/17 07:10 Creatinine 2.2 mg/dL (0.7-1.3) H 06/29/17 07:10 Creat Clearance w eGFR 30.28 (>60) 06/28/17 06:45 Calcium 7.8 mg/dL (8.5-10.1) L 06/29/17 07:10 Total Bilirubin 0.3 mg/dL (0.2-1.0) D 06/28/17 06:45 AST 105 U/L (15-37) H 06/28/17 06:45 ALT 66 U/L (12-78) 06/28/17 06:45 Alkaline Phosphatase 108 U/L (45-117) D 06/28/17 06:45 Total Protein 6.7 g/dl (6.4-8.2) 06/28/17 06:45 Albumin 2.0 g/dl (3.4-5.0) L 06/28/17 06:45 Laboratory Tests 06/25/17 06/25/17 06/25/17 13:40 16:45 16:45 WBC 8.7 RBC 6.31 H Hgb 16.1 Hct 52.1 H MCV 82.6 MCH 25.5 L MCHC 30.9 L RDW 20.1 H Plt Count 168 MPV 9.2 Neutrophils % 71.9 Lymphocytes % 17.9 Monocytes % 8.8 Eosinophils % 1.2 Basophils % 0.2 Platelet Estimate Adequate Platelet Comment Anisocytosis 1+ PT with INR INR PTT (Actin FS) Sodium Potassium Chloride Carbon Dioxide Anion Gap BUN Creatinine Creat Clearance w eGFR POC Glucometer Random Glucose Hemoglobin A1c % Calcium Phosphorus Magnesium Total Bilirubin GGT AST ALT Alkaline Phosphatase Creatine Kinase 62 Troponin I < 0.02 B-Natriuretic Peptide 335.76 H Total Protein Albumin Triglycerides Cholesterol Total LDL Cholesterol HDL Cholesterol Urine Color Yellow Urine Appearance Clear Urine pH 6.0 Ur Specific Weiser 1.013 Urine Protein 3+ H Urine Glucose (UA) Negative Urine Ketones Negative Urine Blood Negative Urine Nitrite Negative Urine Bilirubin Negative Urine Urobilinogen 2.0 Ur Leukocyte Esterase Negative Urine WBC (Auto) 2 Urine RBC (Auto) 1 Urine Mucus Rare U Random Total Protein Ur Random Sodium Ur Random Potassium Ur Random Chloride Urine Creatinine Protein/Creatinin Ratio Opiates Screen Methadone Screen Barbiturate Screen Phencyclidine Screen Ur Amphetamines Screen MDMA (Ecstasy) Screen Benzodiazepines Screen Cocaine Screen U Marijuana (THC) Screen Hepatitis C Antibody HCV Quantitation HCV RNA 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 and 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/ml 06/25/17 06/25/17 06/26/17 16:45 22:54 06:40 WBC 7.6 RBC 6.52 H Hgb 16.5 Hct 53.8 H MCV 82.5 MCH 25.3 L MCHC 30.7 L RDW 19.8 H Plt Count 191 MPV 9.7 Neutrophils % 71.5 Lymphocytes % 16.5 Monocytes % 9.5 Eosinophils % 2.0 Basophils % 0.5 Platelet Estimate Platelet Comment Anisocytosis PT with INR INR PTT (Actin FS) Sodium 141 Potassium 4.5 Chloride 105 Carbon Dioxide 32 Anion Gap 4 L BUN 30 H Creatinine 1.8 H Creat Clearance w eGFR 38.18 POC Glucometer 145 Random Glucose 73 L Hemoglobin A1c % Calcium 7.3 L Phosphorus Magnesium Total Bilirubin 0.6 GGT AST 91 H ALT 58 Alkaline Phosphatase 130 H Creatine Kinase Troponin I B-Natriuretic Peptide Total Protein 6.3 L Albumin 1.8 L Triglycerides Cholesterol Total LDL Cholesterol HDL Cholesterol Urine Color Urine Appearance Urine pH Ur Specific Weiser Urine Protein Urine Glucose (UA) Urine Ketones Urine Blood Urine Nitrite Urine Bilirubin Urine Urobilinogen Ur Leukocyte Esterase Urine WBC (Auto) Urine RBC (Auto) Urine Mucus U Random Total Protein Ur Random Sodium Ur Random Potassium Ur Random Chloride Urine Creatinine Protein/Creatinin Ratio Opiates Screen Methadone Screen Barbiturate Screen Phencyclidine Screen Ur Amphetamines Screen MDMA (Ecstasy) Screen Benzodiazepines Screen Cocaine Screen U Marijuana (THC) Screen Hepatitis C Antibody HCV Quantitation HCV RNA 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 and 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/ml 06/26/17 06/26/17 06/26/17 06:40 06:40 06:40 WBC RBC Hgb Hct MCV MCH MCHC RDW Plt Count MPV Neutrophils % Lymphocytes % Monocytes % Eosinophils % Basophils % Platelet Estimate Platelet Comment Anisocytosis PT with INR 10.50 INR 0.93 PTT (Actin FS) 39.9 H Sodium Potassium Chloride Carbon Dioxide Anion Gap BUN Creatinine Creat Clearance w eGFR POC Glucometer Random Glucose Hemoglobin A1c % 5.6 Calcium Phosphorus 4.7 Magnesium 1.2 L Total Bilirubin GGT 205 H AST ALT Alkaline Phosphatase Creatine Kinase Troponin I B-Natriuretic Peptide Total Protein Albumin Triglycerides 96 Cholesterol 227 H Total LDL Cholesterol 102 H HDL Cholesterol 114 H Urine Color Urine Appearance Urine pH Ur Specific Weiser Urine Protein Urine Glucose (UA) Urine Ketones Urine Blood Urine Nitrite Urine Bilirubin Urine Urobilinogen Ur Leukocyte Esterase Urine WBC (Auto) Urine RBC (Auto) Urine Mucus U Random Total Protein Ur Random Sodium Ur Random Potassium Ur Random Chloride Urine Creatinine Protein/Creatinin Ratio Opiates Screen Methadone Screen Barbiturate Screen Phencyclidine Screen Ur Amphetamines Screen MDMA (Ecstasy) Screen Benzodiazepines Screen Cocaine Screen U Marijuana (THC) Screen Hepatitis C Antibody HCV Quantitation HCV RNA 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 and 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/ml 06/26/17 06/26/17 06/26/17 06:41 07:00 07:00 WBC RBC Hgb Hct MCV MCH MCHC RDW Plt Count MPV Neutrophils % Lymphocytes % Monocytes % Eosinophils % Basophils % Platelet Estimate Platelet Comment Anisocytosis PT with INR INR PTT (Actin FS) Sodium Potassium Chloride Carbon Dioxide Anion Gap BUN Creatinine Creat Clearance w eGFR POC Glucometer 95 Random Glucose Hemoglobin A1c % Calcium Phosphorus Magnesium Total Bilirubin GGT AST ALT Alkaline Phosphatase Creatine Kinase Troponin I B-Natriuretic Peptide Total Protein Albumin Triglycerides Cholesterol Total LDL Cholesterol HDL Cholesterol Urine Color Urine Appearance Urine pH Ur Specific Weiser Urine Protein Urine Glucose (UA) Urine Ketones Urine Blood Urine Nitrite Urine Bilirubin Urine Urobilinogen Ur Leukocyte Esterase Urine WBC (Auto) Urine RBC (Auto) Urine Mucus U Random Total Protein Ur Random Sodium 116 Ur Random Potassium 19.1 Ur Random Chloride 127 Urine Creatinine Protein/Creatinin Ratio Opiates Screen Positive Methadone Screen Positive Barbiturate Screen Negative Phencyclidine Screen Negative Ur Amphetamines Screen Negative MDMA (Ecstasy) Screen Negative Benzodiazepines Screen Positive Cocaine Screen Negative U Marijuana (THC) Screen Negative Hepatitis C Antibody HCV Quantitation HCV RNA 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 and 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/ml 06/26/17 06/26/17 06/26/17 10:00 12:00 12:41 WBC RBC Hgb Hct MCV MCH MCHC RDW Plt Count MPV Neutrophils % Lymphocytes % Monocytes % Eosinophils % Basophils % Platelet Estimate Platelet Comment Anisocytosis PT with INR INR PTT (Actin FS) Sodium Potassium Chloride Carbon Dioxide Anion Gap BUN Creatinine Creat Clearance w eGFR POC Glucometer 107 Random Glucose Hemoglobin A1c % Calcium Phosphorus Magnesium Total Bilirubin GGT AST ALT Alkaline Phosphatase Creatine Kinase Troponin I B-Natriuretic Peptide Total Protein Albumin Triglycerides Cholesterol Total LDL Cholesterol HDL Cholesterol Urine Color Urine Appearance Urine pH Ur Specific Weiser Urine Protein Urine Glucose (UA) Urine Ketones Urine Blood Urine Nitrite Urine Bilirubin Urine Urobilinogen Ur Leukocyte Esterase Urine WBC (Auto) Urine RBC (Auto) Urine Mucus U Random Total Protein Ur Random Sodium Ur Random Potassium Ur Random Chloride Urine Creatinine Protein/Creatinin Ratio Opiates Screen Methadone Screen Barbiturate Screen Phencyclidine Screen Ur Amphetamines Screen MDMA (Ecstasy) Screen Benzodiazepines Screen Cocaine Screen U Marijuana (THC) Screen Hepatitis C Antibody >11.0 H HCV Quantitation [id number] HCV RNA 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 and 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/ml [id number] 06/26/17 06/26/17 06/27/17 17:31 20:58 05:57 WBC RBC Hgb Hct MCV MCH MCHC RDW Plt Count MPV Neutrophils % Lymphocytes % Monocytes % Eosinophils % Basophils % Platelet Estimate Platelet Comment Anisocytosis PT with INR INR PTT (Actin FS) Sodium Potassium Chloride Carbon Dioxide Anion Gap BUN Creatinine Creat Clearance w eGFR POC Glucometer 89 111 76 Random Glucose Hemoglobin A1c % Calcium Phosphorus Magnesium Total Bilirubin GGT AST ALT Alkaline Phosphatase Creatine Kinase Troponin I B-Natriuretic Peptide Total Protein Albumin Triglycerides Cholesterol Total LDL Cholesterol HDL Cholesterol Urine Color Urine Appearance Urine pH Ur Specific Weiser Urine Protein Urine Glucose (UA) Urine Ketones Urine Blood Urine Nitrite Urine Bilirubin Urine Urobilinogen Ur Leukocyte Esterase Urine WBC (Auto) Urine RBC (Auto) Urine Mucus U Random Total Protein Ur Random Sodium Ur Random Potassium Ur Random Chloride Urine Creatinine Protein/Creatinin Ratio Opiates Screen Methadone Screen Barbiturate Screen Phencyclidine Screen Ur Amphetamines Screen MDMA (Ecstasy) Screen Benzodiazepines Screen Cocaine Screen U Marijuana (THC) Screen Hepatitis C Antibody HCV Quantitation HCV RNA 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 and 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/ml 06/27/17 06/27/17 06/28/17 11:59 17:27 05:49 WBC RBC Hgb Hct MCV MCH MCHC RDW Plt Count MPV Neutrophils % Lymphocytes % Monocytes % Eosinophils % Basophils % Platelet Estimate Platelet Comment Anisocytosis PT with INR INR PTT (Actin FS) Sodium Potassium Chloride Carbon Dioxide Anion Gap BUN Creatinine Creat Clearance w eGFR POC Glucometer 103 89 87 Random Glucose Hemoglobin A1c % Calcium Phosphorus Magnesium Total Bilirubin GGT AST ALT Alkaline Phosphatase Creatine Kinase Troponin I B-Natriuretic Peptide Total Protein Albumin Triglycerides Cholesterol Total LDL Cholesterol HDL Cholesterol Urine Color Urine Appearance Urine pH Ur Specific Weiser Urine Protein Urine Glucose (UA) Urine Ketones Urine Blood Urine Nitrite Urine Bilirubin Urine Urobilinogen Ur Leukocyte Esterase Urine WBC (Auto) Urine RBC (Auto) Urine Mucus U Random Total Protein Ur Random Sodium Ur Random Potassium Ur Random Chloride Urine Creatinine Protein/Creatinin Ratio Opiates Screen Methadone Screen Barbiturate Screen Phencyclidine Screen Ur Amphetamines Screen MDMA (Ecstasy) Screen Benzodiazepines Screen Cocaine Screen U Marijuana (THC) Screen Hepatitis C Antibody HCV Quantitation HCV RNA 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 and 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/ml 06/28/17 06/28/17 06/28/17 06:45 06:45 11:28 WBC 5.6 RBC 6.56 H Hgb 16.9 Hct 54.3 H MCV 82.7 MCH 25.8 MCHC 31.2 L RDW 20.5 H Plt Count 219 MPV 9.6 Neutrophils % 52.7 D Lymphocytes % 34.8 D Monocytes % 8.7 Eosinophils % 3.1 Basophils % 0.7 Platelet Estimate Platelet Comment Anisocytosis PT with INR INR PTT (Actin FS) Sodium 143 Potassium 4.6 Chloride 100 Carbon Dioxide 37 H Anion Gap 6 L BUN 47 H D Creatinine 2.2 H Creat Clearance w eGFR 30.28 POC Glucometer 335 Random Glucose 123 H Hemoglobin A1c % Calcium 8.4 L Phosphorus 4.4 Magnesium 1.4 L Total Bilirubin 0.3 D GGT AST 105 H ALT 66 Alkaline Phosphatase 108 D Creatine Kinase Troponin I B-Natriuretic Peptide Total Protein 6.7 Albumin 2.0 L Triglycerides Cholesterol Total LDL Cholesterol HDL Cholesterol Urine Color Urine Appearance Urine pH Ur Specific Weiser Urine Protein Urine Glucose (UA) Urine Ketones Urine Blood Urine Nitrite Urine Bilirubin Urine Urobilinogen Ur Leukocyte Esterase Urine WBC (Auto) Urine RBC (Auto) Urine Mucus U Random Total Protein Ur Random Sodium Ur Random Potassium Ur Random Chloride Urine Creatinine Protein/Creatinin Ratio Opiates Screen Methadone Screen Barbiturate Screen Phencyclidine Screen Ur Amphetamines Screen MDMA (Ecstasy) Screen Benzodiazepines Screen Cocaine Screen U Marijuana (THC) Screen Hepatitis C Antibody HCV Quantitation HCV RNA 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 and 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/ml 06/28/17 06/28/17 06/28/17 16:31 18:00 22:19 WBC RBC Hgb Hct MCV MCH MCHC RDW Plt Count MPV Neutrophils % Lymphocytes % Monocytes % Eosinophils % Basophils % Platelet Estimate Platelet Comment Anisocytosis PT with INR INR PTT (Actin FS) Sodium Potassium Chloride Carbon Dioxide Anion Gap BUN Creatinine Creat Clearance w eGFR POC Glucometer 90 90 Random Glucose Hemoglobin A1c % Calcium Phosphorus Magnesium Total Bilirubin GGT AST ALT Alkaline Phosphatase Creatine Kinase Troponin I B-Natriuretic Peptide Total Protein Albumin Triglycerides Cholesterol Total LDL Cholesterol HDL Cholesterol Urine Color Urine Appearance Urine pH Ur Specific Weiser Urine Protein Urine Glucose (UA) Urine Ketones Urine Blood Urine Nitrite Urine Bilirubin Urine Urobilinogen Ur Leukocyte Esterase Urine WBC (Auto) Urine RBC (Auto) Urine Mucus U Random Total Protein 275 H Ur Random Sodium Ur Random Potassium Ur Random Chloride Urine Creatinine 88.0 Protein/Creatinin Ratio 3.125 Opiates Screen Methadone Screen Barbiturate Screen Phencyclidine Screen Ur Amphetamines Screen MDMA (Ecstasy) Screen Benzodiazepines Screen Cocaine Screen U Marijuana (THC) Screen Hepatitis C Antibody HCV Quantitation HCV RNA 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 and 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/ml 06/29/17 06/29/17 06:13 07:10 WBC RBC Hgb Hct MCV MCH MCHC RDW Plt Count MPV Neutrophils % Lymphocytes % Monocytes % Eosinophils % Basophils % Platelet Estimate Platelet Comment Anisocytosis PT with INR INR PTT (Actin FS) Sodium 138 Potassium 4.5 Chloride 99 Carbon Dioxide 33 H Anion Gap 6 L BUN 62 H D Creatinine 2.2 H Creat Clearance w eGFR POC Glucometer 89 Random Glucose 154 H D Hemoglobin A1c % Calcium 7.8 L Phosphorus Magnesium Total Bilirubin GGT AST ALT Alkaline Phosphatase Creatine Kinase Troponin I B-Natriuretic Peptide Total Protein Albumin Triglycerides Cholesterol Total LDL Cholesterol HDL Cholesterol Urine Color Urine Appearance Urine pH Ur Specific Weiser Urine Protein Urine Glucose (UA) Urine Ketones Urine Blood Urine Nitrite Urine Bilirubin Urine Urobilinogen Ur Leukocyte Esterase Urine WBC (Auto) Urine RBC (Auto) Urine Mucus U Random Total Protein Ur Random Sodium Ur Random Potassium Ur Random Chloride Urine Creatinine Protein/Creatinin Ratio Opiates Screen Methadone Screen Barbiturate Screen Phencyclidine Screen Ur Amphetamines Screen MDMA (Ecstasy) Screen Benzodiazepines Screen Cocaine Screen U Marijuana (THC) Screen Hepatitis C Antibody HCV Quantitation HCV RNA 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 and 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/ml Imaging - Results Ultrasound: Report Reviewed (s/p mariola, enlarged, normal contour liver, small amount of intraperitonel fluid) Problem List - Problems (1) HCV (hepatitis C virus) Code(s): B19.20 - UNSPECIFIED VIRAL HEPATITIS C WITHOUT HEPATIC COMA (2) Alcohol dependence with uncomplicated withdrawal Code(s): F10.230 - ALCOHOL DEPENDENCE WITH WITHDRAWAL, UNCOMPLICATED (3) Diabetes mellitus due to underlying condition, controlled Code(s): E08.9 - DIABETES DUE TO UNDERLYING CONDITION W/O COMPLICATIONS Qualifiers: Diabetes mellitus complication status: without complication Diabetes mellitus oil heaterman insulin use: without shelter use Qualified Code(s): E08.9 - Diabetes mellitus due to underlying condition without complications (4) Sedative, hypnotic or anxiolytic dependence with withdrawal, uncomplicated Code(s): F13.230 - SEDATV/HYP/ANXIOLYTC DEPENDENCE W WITHDRAWAL, UNCOMPLICATED Assessment/Plan A 62 yom, HCV positive. No clear evidence of advanced liver disease based on labs, imaging and exam. No immediate need for in-patient HCV workup. Follow with GI as OP to r/o any other underlying liver condition before initiating HCV treatment.
--- NOTE | 2017-06-29 14:44 | PN ---
Progress Note, Physician History of Present Illness: Pt seen and examined at bedside. He is awake and alert. He denies shortness of breath. He feels that his lower extremity edema is improving. - Current Medication List Current Medications: Active Medications Albuterol Sulfate (Ventolin Hfa Inhaler -) 2 puff IH Q6H PRN PRN Reason: WHEEZING Aspirin (Asa -) 325 mg PO DAILY [facility] Last Admin: 06/29/17 09:02 Dose: 325 mg Diazepam (Valium -) 10 mg PO HS [facility] Last Admin: 06/28/17 22:33 Dose: 10 mg Diazepam (Valium -) 10 mg PO Q4H PRN PRN Reason: WITHDRAWAL(CONT SUBST) Stop: 07/01/17 12:50 Furosemide (Lasix Injection -) 40 mg IVPUSH BID@0600,1400 [facility] Last Admin: 06/28/17 05:54 Dose: 40 mg Gabapentin (Neurontin -) 300 mg PO HS [facility] Last Admin: 06/28/17 22:34 Dose: 300 mg Heparin Sodium (Porcine) (Heparin -) 5,000 unit SQ TID [facility] Last Admin: 06/29/17 14:10 Dose: 5,000 unit Insulin Aspart (Novolog Vial Sliding Scale -) 1 vial SQ ACHS [facility] PRN Reason: Protocol Last Admin: 06/29/17 11:39 Dose: Not Given Labetalol HCl (Normodyne -) 100 mg PO BID [facility] Last Admin: 06/29/17 09:02 Dose: 100 mg Levetiracetam (Keppra -) 500 mg PO BID [facility] Last Admin: 06/29/17 09:02 Dose: 500 mg Methadone HCl (Dolophine -) 30 mg PO DAILY@0600 [facility] Last Admin: 06/29/17 06:06 Dose: 30 mg Multivit/Folic Acid/Iron ( Vitamins (Sjr) -) 1 tab PO DAILY [facility] Last Admin: 06/29/17 09:02 Dose: 1 tab Tamsulosin HCl (Flomax -) 0.4 mg PO DAILY@0830 [facility] Last Admin: 06/29/17 09:02 Dose: 0.4 mg Thiamine HCl (Vitamin B1 -) 100 mg PO [facility] Last Admin: 06/28/17 22:32 Dose: 100 mg Trazodone HCl (Desyrel -) 100 mg PO [facility] Last Admin: 06/28/17 22:32 Dose: 100 mg Zolpidem Tartrate (Ambien -) 10 mg PO HS PRN PRN Reason: INSOMNIA Last Admin: 06/28/17 22:45 Dose: 10 mg - Objective Vital Signs: Vital Signs Temperature 98.5 F 06/29/17 06:00 Pulse Rate 83 06/29/17 09:00 Respiratory Rate 18 06/29/17 09:00 Blood Pressure 116/87 06/29/17 09:00 O2 Sat by Pulse Oximetry (%) 92 L 06/29/17 09:00 Constitutional: Yes: Calm Eyes: Yes: Conjunctiva Clear HENT: Yes: Atraumatic Cardiovascular: Yes: S1, S2 Respiratory: Yes: CTA Bilaterally Gastrointestinal: Yes: Soft Genitourinary: Yes: WNL Musculoskeletal: Yes: WNL Edema: Yes Edema: LLE: 1+, RLE: 1+ Integumentary: Yes: Venous Stasis Changes Neurological: Yes: Oriented Psychiatric: Yes: Oriented Labs: CBC, BMP 06/28/17 06:45 06/29/17 07:10 INR, PTT INR 0.93 (0.82-1.09) 06/26/17 06:40 Problem List - Problems (1) CKD (chronic kidney disease) Code(s): N18.9 - CHRONIC KIDNEY DISEASE, UNSPECIFIED (2) Opioid dependence on agonist therapy Code(s): F11.20 - OPIOID DEPENDENCE, UNCOMPLICATED (3) Testicle swelling Code(s): N50.89 - OTHER SPECIFIED DISORDERS OF THE MALE GENITAL ORGANS (4) Alcohol dependence with uncomplicated withdrawal Code(s): F10.230 - ALCOHOL DEPENDENCE WITH WITHDRAWAL, UNCOMPLICATED (5) Hypertension Code(s): I10 - ESSENTIAL (PRIMARY) HYPERTENSION Qualifiers: Hypertension type: essential hypertension Qualified Code(s): I10 - Essential (primary) hypertension Assessment/Plan Current Medications Generic Name Dose Route Start Last Admin Trade Name Freq PRN Reason Stop Dose Admin Albuterol Sulfate 2 puff 06/25/17 22:33 Ventolin Hfa Inhaler - IH Q6H PRN WHEEZING Aspirin 325 mg 06/26/17 10:00 06/29/17 09:02 Asa - PO 325 mg DAILY [facility] Administration Diazepam 10 mg 06/26/17 22:00 06/28/17 22:33 Valium - PO 10 mg HS [facility] Administration Diazepam 10 mg 12/11/17 12:49 Valium - PO 07/01/17 12:50 Q4H PRN WITHDRAWAL(CONT SUBST) Furosemide 40 mg 06/25/17 22:30 06/28/17 05:54 Lasix Injection - IVPUSH 40 mg BID@0600,1400 [facility] Administration Gabapentin 300 mg 06/26/17 22:00 06/28/17 22:34 Neurontin - PO 300 mg HS [facility] Administration Heparin Sodium (Porcine) 5,000 unit 06/26/17 06:00 06/29/17 14:10 Heparin - SQ 5,000 unit TID [facility] Administration Insulin Aspart 1 vial 06/26/17 07:00 06/29/17 11:39 Novolog Vial Sliding Scale - SQ Not Given ACHS [facility] Protocol Labetalol HCl 100 mg 06/28/17 10:15 06/29/17 09:02 Normodyne - PO 100 mg BID [facility] Administration Levetiracetam 500 mg 06/25/17 22:45 06/29/17 09:02 Keppra - PO 500 mg BID [facility] Administration Methadone HCl 30 mg 06/26/17 06:00 06/29/17 06:06 Dolophine - PO 30 mg DAILY@0600 [facility] Administration Multivit/Folic Acid/Iron 1 tab 06/28/17 13:00 06/29/17 09:02 Vitamins (Sjr) - PO 1 tab DAILY [facility] Administration Tamsulosin HCl 0.4 mg 06/26/17 08:30 06/29/17 09:02 Flomax - PO 0.4 mg DAILY@0830 [facility] Administration Thiamine HCl 100 mg 06/28/17 22:00 06/28/17 22:32 Vitamin B1 - PO 100 mg HS [facility] Administration Trazodone HCl 100 mg 06/26/17 22:00 06/28/17 22:32 Desyrel - PO 100 mg HS [facility] Administration Zolpidem Tartrate 10 mg 06/28/17 12:48 06/28/17 22:45 Ambien - PO 10 mg HS PRN Administration INSOMNIA Laboratory Tests 06/25/17 06/28/17 13:40 18:00 Urine Protein 3+ H Protein/Creatinin Ratio 3.125 Impression 1. likely CKD with acute component 2. HTN 3. polysubstance abuse 4. BPH 5. DM 6. epilepsy 7. asthma 8. proteinuria 9. Hep C Plan - cont with lasix - echo reviewed - GI input appreciated, will need to follow with GI for Hep C treatment - pt will need renal workup as outpt, he will come to the office - follow up yoni - recommend kidney biopsy, he will think about it - can switch lasix to PO - pt does have nephrotic range proteinuria - will follow Dr Farmer
[2017-06-29 15:19] VITALS: BP 113/69; PULSE 80; TEMP 98.2
--- NOTE | 2017-06-29 17:09 | DS ---
Physical Exam: SUBJECTIVE: Patient seen and examined. Pt feels better today. Pt denies chest pain, sob, abdominal pain, fever, chills, nausea, vomiting. No events overnight. OBJECTIVE: Vital Signs Period Temp Pulse Resp BP Sys/Conte Pulse Ox Last 24 Hr 98.1 F-98.5 F 76-83 18-20 105-131/56-87 92-97 PHYSICAL EXAM GENERAL: Awake, alert, and fully oriented. NAD. LUNGS: CTAB. HEART: Regular rate and rhythm, normal S1 and S2 without murmur, rub or gallop. ABDOMEN: Soft, nontender, nondistended. LOWER EXTREMITIES: 1+ danilo pulses, warm, well-perfused, no edema. No calf tenderness. : scrotal swelling present on adm resolved. NEUROLOGICAL: Cranial nerves II-XII grossly intact. Normal speech. Gait steady. PSYCHIATRIC: Cooperative. Good eye contact. Appropriate mood and affect. LABS Laboratory Results - last 24 hr 06/26/17 06/28/17 06/28/17 10:00 16:31 18:00 Sodium Potassium Chloride Carbon Dioxide Anion Gap BUN Creatinine POC Glucometer 90 Random Glucose Calcium U Random Total Protein 275 H Urine Creatinine 88.0 Protein/Creatinin Ratio 3.125 HCV Quantitation [id number] HCV RNA PCR log news copy editor/ml 6.795 06/28/17 06/29/17 06/29/17 22:19 06:13 07:10 Sodium 138 Potassium 4.5 Chloride 99 Carbon Dioxide 33 H Anion Gap 6 L BUN 62 H D Creatinine 2.2 H POC Glucometer 90 89 Random Glucose 154 H D Calcium 7.8 L U Random Total Protein Urine Creatinine Protein/Creatinin Ratio HCV Quantitation HCV RNA PCR log news copy editor/ml 06/29/17 11:38 Sodium Potassium Chloride Carbon Dioxide Anion Gap BUN Creatinine POC Glucometer 101 Random Glucose Calcium U Random Total Protein Urine Creatinine Protein/Creatinin Ratio HCV Quantitation HCV RNA PCR log news copy editor/ml HOSPITAL COURSE: Date of Admission:06/25/17 Date of Discharge: 06/29/17 62yo M with PMH of htn, DM, hep C (not yet treated), polysubstance abuse, presents c/o worsening danilo LE and scrotal swelling, admitted for fluid overload. Pt diuresed with Lasix. Pt seen by Detox (Dr. Epperson) who continued Methadone, and initiated thiamine/folic acid/MVI. Home meds of HCTZ, Norvasc, and Losartan held 2/2 CKD. Htn treated with Labetalol. F/u instructions with Nephrology, GI, and PCP provided. 06/25/17 CXR -> linear atelectasis and/or scarring in both lung bases 06/25/[address] -> no acute intracranial pathology 06/25/17 Vascular Study -> no DVT to danilo LE 06/26/17 knee xrays -> no acute pathology 06/26/17 Scrotum US -> small to moderate Right hydrocele 06/26/17 Abd US -> no hydronephrosis. Right renal cortical echogenicity suggestive of medical renal disease. Small amount of perihepatic ascites. Right plerual effusion. Mild hepatomegaly. Mild-moderate splenomegaly. 06/28/17 Echo -> Left ventricle normal in size and systolic function. Pt is independent for ADLs. Pt walked 200 ft with PT. Pt is stable for discharge home. Minutes to complete discharge: 35 Discharge Summary Reason For Visit: SWELLING OF LOWER EXTREMITY Current Active Problems CKD (chronic kidney disease) (Acute) HCV (hepatitis C virus) (Acute) Opioid dependence on agonist therapy (Acute) Testicle swelling (Acute) Condition: Stable - Instructions Diet, Activity, Other Instructions: You were admitted for swelling in your legs. You are being transferred to [facility] to continue your drug rehabilitation. Follow-ups, Contact information for the offices has been provided, please call to make appointments in week of discharge from rehab. - Dr. Farmer, kidney doctor, to continue outpatient work-up of your kidneys in one week. - your primary care physician, if you do not have one, information for Dr. Bocanegra has been provided for you to establish a primary care doctor to help manage your chronic medical conditions. - Dr. Morin, GI doctor, for treatment of your Hepatitis C Medications: Take furosemide(lasix) 40mg 1 tablet two times daily, once at 6am and once at 2pm Take labetalol 100mg 1 tablet twice daily. STOP your Cozaar (losartan), Norvasc (amlodipine) and your Hydrochlorothiazide ( HCTZ). If you develop worsening chest pain, trouble breathing, swelling in your legs or scrotum or any other new symptoms, please return to the hospital. Referrals: Huber Bocanegra MD [Staff Physician] - Geronimo Morin MD [Staff Physician] - Jasper Farmer MD [Staff Physician] - Disposition: HOME - Home Medications Comprehensive Discharge Medication List: Ambulatory Orders Albuterol Sulfate [Proventil HFA Inhaler -] 1 - 2 inh PO QID PRN 06/25/17 Aspirin [Aspirin EC] 325 mg PO DAILY 06/25/17 Gabapentin 300 mg PO HS 06/25/17 Hydroxyzine HCl [Atarax -] 50 mg PO HS PRN 06/25/17 Levetiracetam [Keppra -] 500 mg PO BID 06/25/17 Methadone [Dolophine -] 30 mg PO DAILY 06/25/17 Tamsulosin HCl [Flomax -] 0.4 mg PO DAILY 06/25/17 Trazodone HCl [Desyrel -] 100 mg PO HS 06/25/17 Folic Acid - 1 mg PO DAILY tablet 06/29/17 Furosemide [Lasix -] 40 mg PO BIDLASIX tablet 06/29/17 Insulin Sliding Scale [Novolog Vial Sliding Scale -] 1 vial SQ ACHS units 06/29 Labetalol HCl [Normodyne -] 100 mg PO BID tablet 06/29/17 Multivitamins [Multivit ([facility] Formulary)] 1 tab PO DAILY tab 06/29/17 Vitamins (r) - 1 tab PO DAILY tablet 06/29/17 Thiamine HCl [Vitamin B1 -] 100 mg PO DAILY tablet 06/29/17 Thiamine HCl [Vitamin B1 -] 100 mg PO HS tablet 06/29/17 This patient is new to me today: No Emergency Visit: Yes ED Registration Date: 06/25/17 Care time: The patient presented to the Emergency Department on the above date and was hospitalized for further evaluation of their emergent condition. Critical Care patient: No - Discharge Referral Referred to [facility] Med P.C.: No
--- NOTE | 2017-06-29 18:59 | PN ---
Teaching Attending Note Name of Resident: Aissatou Gomes ATTENDING PHYSICIAN STATEMENT I saw and evaluated the patient. I reviewed the resident's note and discussed the case with the resident. I agree with the resident's findings and plan as documented. SUBJECTIVE: Patient is feeling better today , wants to go to [facility]. No fever or chills, no nausea or vomiting. OBJECTIVE: Vital Signs Temperature 98.2 F 06/29/17 14:16 Pulse Rate 80 06/29/17 14:16 Respiratory Rate 20 06/29/17 14:16 Blood Pressure 113/69 06/29/17 14:16 O2 Sat by Pulse Oximetry (%) 92 L 06/29/17 09:00 CBCD WBC 5.6 K/mm3 (4.0-10.0) 06/28/17 06:45 RBC 6.56 M/mm3 (4.00-5.60) H 06/28/17 06:45 Hgb 16.9 GM/dL (11.7-16.9) 06/28/17 06:45 Hct 54.3 % (35.4-49) H 06/28/17 06:45 MCV 82.7 fl (80-96) 06/28/17 06:45 MCHC 31.2 g/dl (32.0-35.9) L 06/28/17 06:45 RDW 20.5 % (11.9-15.9) H 06/28/17 06:45 Plt Count 219 K/MM3 (134-434) 06/28/17 06:45 MPV 9.6 fl (7.5-11.1) 06/28/17 06:45 CMP Sodium 138 mmol/L (136-145) 06/29/17 07:10 Potassium 4.5 mmol/L (3.5-5.1) 06/29/17 07:10 Chloride 99 mmol/L (98-107) 06/29/17 07:10 Carbon Dioxide 33 mmol/L (21-32) H 06/29/17 07:10 Anion Gap 6 (8-16) L 06/29/17 07:10 BUN 62 mg/dL (7-18) H D 06/29/17 07:10 Creatinine 2.2 mg/dL (0.7-1.3) H 06/29/17 07:10 Creat Clearance w eGFR 30.28 (>60) 06/28/17 06:45 Random Glucose 154 mg/dL (74-106) H D 06/29/17 07:10 Calcium 7.8 mg/dL (8.5-10.1) L 06/29/17 07:10 Total Bilirubin 0.3 mg/dL (0.2-1.0) D 06/28/17 06:45 AST 105 U/L (15-37) H 06/28/17 06:45 ALT 66 U/L (12-78) 06/28/17 06:45 Alkaline Phosphatase 108 U/L (45-117) D 06/28/17 06:45 Total Protein 6.7 g/dl (6.4-8.2) 06/28/17 06:45 Albumin 2.0 g/dl (3.4-5.0) L 06/28/17 06:45 CARDIAC ENZYMES Creatine Kinase 62 IU/L (39-308) 06/25/17 16:45 Troponin I < 0.02 ng/ml (0.00-0.05) 06/25/17 16:45 Home Medications Medication Instructions Recorded Albuterol Sulfate [Proventil HFA 1 - 2 inh PO QID PRN 06/25/17 Inhaler -] Aspirin [Aspirin EC] 325 mg PO DAILY 06/25/17 Gabapentin 300 mg PO HS 06/25/17 Hydroxyzine HCl [Atarax -] 50 mg PO HS PRN 06/25/17 Levetiracetam [Keppra -] 500 mg PO BID 06/25/17 Methadone [Dolophine -] 30 mg PO DAILY 06/25/17 Tamsulosin HCl [Flomax -] 0.4 mg PO DAILY 06/25/17 Trazodone HCl [Desyrel -] 100 mg PO HS 06/25/17 Folic Acid - 1 mg PO DAILY tablet 06/29/17 Furosemide [Lasix -] 40 mg PO BIDLASIX tablet 06/29/17 Insulin Sliding Scale [Novolog 1 vial SQ ACHS units 06/29/17 Vial Sliding Scale -] Labetalol HCl [Normodyne -] 100 mg PO BID tablet 06/29/17 Multivitamins [Multivit ([facility] 1 tab PO DAILY tab 06/29/17 Formulary)] Vitamins ([facility]) - 1 tab PO DAILY tablet 06/29/17 Thiamine HCl [Vitamin B1 -] 100 mg PO DAILY tablet 06/29/17 Thiamine HCl [Vitamin B1 -] 100 mg PO HS tablet 06/29/17 PE: per resident's note 08/26/16 CXR -> linear atelectasis and/or scarring in both lung bases. 06/25/[address] -> no acute intracranial pathology. 06/25/17 Vascular Study -> no DVT to danilo LE 06/26/17 Scrotum US -> small to moderate Right hydrocele 06/26/17 Abd US -> no hydronephrosis. Right renal cortical echogenicity suggestive of medical renal disease. Small amount of perihepatic ascites. Right plerual effusion. Mild hepatomegaly. Mild-moderate splenomegaly. 06/28/17 Echo -> Left ventricle normal in size and systolic function. ASSESSMENT/PLAN: 62yo M with PMH of htn, DM, hep C (not yet treated), polysubstance abuse, presents c/o worsening danilo LE and scrotal swelling, admitted for fluid overload. #Acute fluid overload improved on po lasix discussed with nephro. patient needs to follow with nephrology for further w/u as an oupatient with hx of liver cirrhosis with possible hepatitis C vs alcoholic hepatitis. Echo normal. # polysubstance abuse/ alcohol dependency as well on Methadone 30mg continue , continue folic acid and thiamine, going to rehab detox. # Acute left knee pain r/o fx, xray of both knees ordered are within nl limits. # MARCE vs CKD baseline unknown, f/u urine electrolytes, renal US Right renal cortical echogenicity suggestive of medical renal disease # Hepatitis C f/u Hep C serology; pt is ready to receive treatment if (+) # htn continue with Labetolol 100mgpo bid, and Lasix # seizure continue home med of Keppra # hx of asthma continue home med of Proventil # DM BGMs ACHS, Novolog SSI, f/u Hgba1c, pt reports hx of peripheral neuropathy to danilo feet -> continue Neurontin # depression continue home med of Trazodone accepted to residential detox
[2017-06-30] MEDS ORDERED: FUROSEMIDE 40 MG TABLET (FP) PO SCH (06:00)
[2017-06-30] MEDS ORDERED: diazePAM 5 MG TABLET PO SCH (10:00)
== END 2017-06-29 17:44 | disposition home or self-care (01) | DRG 280 ==
LOC: JER 12:37 → JERBED 16:28 → J5S 21:48 → OBSVTOIN 22:14
PROVIDERS: ADMIT Internal Medicine; ATTEND Internal Medicine
DX: K70.30 Alcoholic cirrhosis of liver without ascites (principal); N17.9 Acute kidney failure, unspecified; J45.909 Unspecified asthma, uncomplicated; G40.802 Other epilepsy, not intractable, without status epilepticus; J90 Pleural effusion, not elsewhere classified; F13.230 Sedative, hypnotic or anxiolytic dependence with withdrawal, uncomplicated; N50.89 Other specified disorders of the male genital organs; F10.230 Alcohol dependence with withdrawal, uncomplicated; E87.70 Fluid overload, unspecified; J98.11 Atelectasis; I12.9 Hypertensive chronic kidney disease with stage 1 through stage 4 chronic kidney disease, or unspecified chronic kidney disease; E11.22 Type 2 diabetes mellitus with diabetic chronic kidney disease; N18.9 Chronic kidney disease, unspecified; B19.20 Unspecified viral hepatitis C without hepatic coma; F32.9 Major depressive disorder, single episode, unspecified; F11.20 Opioid dependence, uncomplicated; N43.2 Other hydrocele
CPT/HCPCS: 36415; 70450-TC; 71010-TC; 73562-TC-LT; 73562-TC-RT; 76700-TC; 76870-TC; 80048; 80053; 80061; 80307; 81003; 81015; 82436; 82550; 82570; 82977; 83036; 83721; 83735; 83880; 84100; 84133; 84156; 84300; 84484; 85025; 85027; 85610; 85730; 86038; 86593; 86803; 87522; 93005; 93010; 93306-TC; 93970-TC; 97116-GP; 97161-GP; 99284-25; G0378; J1644

== ENCOUNTER 2017-06-29 20:56 | Inpatient (IN) | payer BC ==
[2017-06-29 21:20] VITALS: BMI 25.4
--- NOTE | 2017-06-29 21:50 | HP ---
Admission [facility] Chief Complaint: COMPLETED DETOX SEEKING CONTINUATION OF CARE WITH REHAB SERVICES. Allergies/Adverse Reactions: Allergies Allergy/AdvReac Type Severity Reaction Status Date / Time fish derived Allergy Severe Difficulty Verified 06/25/17 17:17 Breathing shellfish derived Allergy Severe Difficulty Verified 06/25/17 17:17 Breathing No Known Drug Allergies Allergy Verified 06/25/17 10:10 Penicillins Allergy Verified 06/25/17 12:55 seafood Allergy Severe Difficulty Uncoded 06/25/17 10:09 Breathing History of Present Illness: 62yo M with PMH of htn, DM, hep C (not yet treated), polysubstance abuse, returns from [facility] after a 4 day stay. tx'ed for danilo LE and scrotal swelling , admitted for fluid overload. Pt diuresed with Lasix. Pt seen by Detox (Dr. Epperson) who continued Methadone 30 mg daily. home [facility] reports longest clean time 18 months Exam Limitations: No Limitations - Ebola screening Have you traveled outside of the country in the last 21 days: No Have you had contact with anyone from an Ebola affected area: No Have you been sick,other than usual withdrawal symptoms: No Do you have a fever: No - Review of Systems Constitutional: Chills, Malaise, Night Sweats EENT: reports: Dental Problems (upper and lower dentures), Other (eye glasses) Respiratory: reports: No Symptoms reported Cardiac: reports: No Symptoms Reported GI: reports: No Symptoms Reported : reports: No Symptoms Reported Musculoskeletal: reports: Joint Pain Integumentary: reports: Other (eczema) Neuro: reports: Seizure (drug related) Endocrine: reports: Other (dm) Hematology: reports: No Symptoms Reported Psychiatric: reports: Anxious, Depressed Other Systems: Reviewed and Negative Patient History - Patient Medical History Hx Anemia: No Hx Asthma: Yes Hx Chronic Obstructive Pulmonary Disease (COPD): No Hx Cancer: No Hx Cardiac Disorders: No Hx Congestive Heart Failure: No Hx Hypertension: Yes Hx Hypercholesterolemia: No Hx Pacemaker: No HX Cerebrovascular Accident: No Hx Seizures: Yes (11/2 YRS AGO) Hx Dementia: No Hx Diabetes: No Hx Gastrointestinal Disorders: No Hx Liver Disease: No Hx Genitourinary Disorders: No Hx Sexually Transmitted Disorders: No Hx Renal Disease (ESRD): Yes (CKD) Hx Thyroid Disease: No Hx Human Immunodeficiency Virus (HIV): No Hx Hepatitis C: Yes (no txment) Hx Depression: Yes Hx Suicide Attempt: No Hx Bipolar Disorder: No Hx Schizophrenia: No Other Medical History: denies - Patient Surgical History Past Surgical History: Yes Hx Breast Biopsy: Yes (L LUMPECTOMY) Hx Cholecystectomy: Yes Anesthesia Reaction: No - PPD History Previous Implant?: Yes Documented Results: Negative w/o proof Implanted On Prior R Admission?: No PPD to be Administered?: Yes - Smoking Cessation Smoking history: Current every day smoker Have you smoked in the past 12 months: Yes Aproximately how many cigarettes per day: 4 Cigars Per Day: 0 Hx Chewing Tobacco Use: No Initiated information on smoking cessation: Yes 'Breaking Loose' booklet given: 06/29/17 - Substance & Tx. History Hx Alcohol Use: Yes Hx Substance Use: Yes Substance Use Type: Alcohol, Prescribed (METHADONE), Tranquilizers (XANAX) Hx Substance Use Treatment: Yes (ACI/JAILYN) - Substances Abused VODKA Route: Oral Frequency: 3-6 times per week Amount used: 1 PINT Age of first use: 15 Date of Last Use: 06/25/17 XANAX Route: Oral Frequency: 3-6 times per week Amount used: 4MG Age of first use: 44 Date of Last Use: 06/25/17 Family Disease History - Family Disease History Family Disease History: Diabetes: Mother (ALCOHOL/, CHF DM), CA: Father (ALCOHOL/ COLON CA), Other: Father, Mother, Sister (DRUGS) Admission Physical Exam [facility] - Vital Signs Vital Signs: Vital Signs - 24 hr 06/29/17 21:18 Temperature 96.4 F L Pulse Rate 90 Respiratory 18 Rate Blood Pressure 143/91 - Physical General Appearance: Yes: No Apparent Distress, Appropriately Dressed HEENTM: Yes: EOMI, Normocephalic, RAFAEL, Pharynx Normal, Other (UPPER/LOWER DENTURES GLASSES) Respiratory: Yes: Chest Non-Tender, Lungs Clear, Decreased Breath Sounds, No Respiratory Distress Neck: Yes: No masses,lesions,Nodules, Supple, Trachea in good position Breast: Yes: Breast Exam Deferred Cardiology: Yes: Regular Rhythm, Regular Rate, S1, S2 Abdominal: Yes: Non Tender, Soft, Protuberent, Surgical Scar Genitourinary: Yes: Within Normal Limits Back: Yes: Normal Inspection Musculoskeletal: Yes: full range of Motion, Gait Steady Extremities: Yes: Normal Range of Motion, Non-Tender Neurological: Yes: Alert, Motor Strength 5/5 Integumentary: Yes: Other (VASCULAR CHANGES TO BLE WITH RESOLVING EDEMA) Lymphatic: Yes: Within Normal Limits - Diagnostic (1) Uncomplicated alcohol dependence Current Visit: Yes Status: Chronic (2) Sedative, hypnotic or anxiolytic abuse, uncomplicated Current Visit: Yes Status: Chronic (3) CKD (chronic kidney disease) Current Visit: Yes Status: Chronic Qualifiers: Chronic kidney disease stage: unspecified stage Qualified Code(s): N18.9 - Chronic kidney disease, unspecified (4) HCV (hepatitis C virus) Current Visit: Yes Status: Chronic Qualifiers: Viral hepatitis chronicity: unspecified (5) Opioid dependence on agonist therapy Current Visit: Yes Status: Chronic (6) Diabetes mellitus due to underlying condition, controlled Current Visit: Yes Status: Chronic Qualifiers: Diabetes mellitus complication status: without complication Diabetes mellitus usp insulin use: without usp use Qualified Code(s): E08.9 - Diabetes mellitus due to underlying condition without complications (7) Hypertension Current Visit: Yes Status: Chronic Qualifiers: Hypertension type: essential hypertension Qualified Code(s): I10 - Essential (primary) hypertension (8) Nicotine dependence Current Visit: Yes Status: Chronic Qualifiers: Nicotine product type: cigarettes Substance use status: uncomplicated Qualified Code(s): F17.210 - Nicotine dependence, cigarettes, uncomplicated Cleared for Admission [facility] - Detox or Rehab Detox Regimen/Protocol: Not Applicable Claeared for Rehab Admission: Yes [facility] Breath Alcohol Content Breath Alcohol Content: 0 Urine Drug Screen - Results Drug Screen Negative: No Urine Drug Screen Results: OPI-Opiates, BZO-Benzodiazepines, MTD-Methadone Inpatient Rehab Admission - Initial Determination Are CD services needed?: Yes Free of communicable disease: Yes Not in need of hospitalization: Yes - Rehab Admission Criteria Previous failed treatment: Yes Poor recovery environment: Yes Comorbidities: Yes Lacks judgement: Yes Patient is meeting Inpatient Rehab admission criteria:: Yes
[2017-06-29] MEDS ORDERED: ACETAMINOPHEN 325 MG TABLET (FP) PO PRN (21:59)
[2017-06-29] MEDS ORDERED: MAGNESIUM HYDROX 2400MG/30ML ORAL SUSPENSION 30 ML CUP PO PRN (21:59)
[2017-06-29] MEDS ORDERED: hydrOXYzine PAMOATE 50 MG CAPSULE (FP) PO PRN (21:59)
[2017-06-29] MEDS ORDERED: P-EPHED 60MG/TRIPROLIDI 2.5MG TABLET PO PRN (21:59)
[2017-06-29] MEDS ORDERED: MAGNESIUM CITRATE 300 ML BOTTLE PO PRN (21:59)
[2017-06-29] MEDS ORDERED: MAG HYDROX/AL HYDROX/SIMETH 30 ML UNIT-DOSE CUP PO PRN (21:59)
[2017-06-29] MEDS ORDERED: IBUPROFEN 400 MG TABLET (FP) PO PRN (21:59)
[2017-06-29] MEDS ORDERED: LOPERAMIDE HCL 2 MG CAPSULE PO PRN (21:59)
[2017-06-29] MEDS ORDERED: guaiFENesin/D-METHORPHAN HB 10 ML UNIT-DOSE CUPS PO PRN (21:59)
[2017-06-29] MEDS ORDERED: NICOTINE POLACRILEX 2 MG GUM BUC PRN (21:59)
[2017-06-29] MEDS ORDERED: MENTHOL/PHENOL 1 EACH UD MM PRN (21:59)
[2017-06-30] MEDS: levETIRAcetam 500 MG TABLET (FP) PO SCH ×3 (00:12→21:59)
[2017-06-30] MEDS ORDERED: TUBERCULIN PPD 5 TU/0.1ML VIAL ID ONE (00:12)
[2017-06-30] MEDS: LABETALOL HCL 100 MG TABLET (FP) PO SCH ×3 (00:13→21:59)
[2017-06-30] MEDS: THIAMINE HCL 100 MG TABLET (FP) PO SCH ×2 (00:13→21:59)
[2017-06-30] MEDS: FUROSEMIDE 40 MG TABLET (FP) PO SCH ×2 (06:07→14:23)
--- NOTE | 2017-06-30 06:16 | HP ---
Psychiatrist Admission - Data Date of interview: 06/30/17 Admission source: [facility]/Magda Croft Identifying data: This is the first [facility] dmission for this 62 years old Black male, father of 2 children, unemployed on Social Security, domiciled Medical History: Significant for bronchial asthma, htn, diabetes mellitus, hepatitis c, seizure disorder,end stage renal disease, arthritis and a history of surgery for removal of mass left breast. Patient is on methadone 30 mg po daily. Smokes 4-6 cigarettes daily Psychiatric History: Reports that he started seeing psychiatrist in 2006 for depression. Claims depression was multifactorial stemmed from multiple deaths of love ones, psychosocial issues etc. Reports that among other symtoms he was not taking care of himself, not feeling energetic and did not feel like doing anything. Reports that he saw different psychiatrists on & off over the years and has tried different medications including Valium, Xanax, Prozac etc. He is currently on Effexor 75 mg po daily, Abilify 2 mg po daily, Vistaril 50 mg po HS and Trazadone 100 mg po HS prescribed by his primary care physician. Denies previous psychiatric hospitalization or suicidal attempt. At present, reports feeling well but sleeping poorly Physical/Sexual Abuse/Trauma History: Denies history of verbal, physical or sexual abuse as well as DV relationship. No service Additional Comment: Reports 4 previous misdemeanor arrests. No probation Vital Signs: Vital Signs - 24 hr 06/29/17 06/30/17 21:18 03:30 Temperature 96.4 F L Pulse Rate 90 Respiratory 18 18 Rate Blood Pressure 143/91 Allergies/Adverse Reactions: Allergies Allergy/AdvReac Type Severity Reaction Status Date / Time fish derived Allergy Severe Difficulty Verified 06/29/17 22:44 Breathing shellfish derived Allergy Severe Difficulty Verified 06/29/17 22:44 Breathing No Known Drug Allergies Allergy Verified 06/29/17 22:44 Penicillins Allergy Verified 06/29/17 22:44 seafood Allergy Severe Difficulty Uncoded 06/29/17 22:44 Breathing Date of last physical exam: 06/29/17 Concur with the findings of this exam: Yes - Substance Abuse/Tx History Hx Alcohol Use: Yes Hx Substance Use: Yes Substance Use Type: Alcohol (Stated drining alcohol at age 15, consumes one pint of vodka 3-6 times weekly. Last drank on 06/25/17), Tranquilizers (Started using xanax at age c44, consumes 4 mg 3-6 times weekly. Last used on 06/25/17) Hx Substance Use Treatment: Yes (Currently attends [facility]; multiple inpt detox & 3 inpt rehab admissions) Mental Status Exam - Mental Status Exam Alert and Oriented to: Time, Place, Person Cognitive Function: Fair Patient Appearance: Well Groomed Mood: Hopeful, Euthymic Patient Behavior: Cooperative Speech Pattern: Clear Voice Loudness: Normal Thought Process: Intact, Goal Oriented Hallucinations: Denies Homicidal Ideation: Denies Insight/Judgement: Fair Sleep: Poorly Appetite: Fair Muscle strength/Tone: Normal Gait/Station: Normal Psychiatric Findings - Problem List ([place] 1, 2,3) (1) Alcohol dependence Current Visit: Yes Status: Acute (2) Sedative hypnotic or anxiolytic dependence Current Visit: Yes Status: Acute (3) Opioid dependence on agonist therapy Current Visit: Yes Status: Chronic (4) Nicotine dependence Current Visit: Yes Status: Chronic Qualifiers: Nicotine product type: cigarettes Substance use status: uncomplicated Qualified Code(s): F17.210 - Nicotine dependence, cigarettes, uncomplicated (5) Depressive disorder Current Visit: Yes Status: Chronic (6) MDD (major depressive disorder) Current Visit: Yes Status: Ruled-out (7) Substance induced mood disorder Current Visit: Yes Status: Ruled-out (8) Substance-induced sleep disorder Current Visit: Yes Status: Acute (9) CKD (chronic kidney disease) Current Visit: Yes Status: Chronic Qualifiers: Chronic kidney disease stage: unspecified stage Qualified Code(s): N18.9 - Chronic kidney disease, unspecified (10) Diabetes mellitus due to underlying condition, controlled Current Visit: Yes Status: Chronic Qualifiers: Diabetes mellitus complication status: without complication Diabetes mellitus adjunct faculty for medical terminology insulin use: without shelter use Qualified Code(s): E08.9 - Diabetes mellitus due to underlying condition without complications (11) HCV (hepatitis C virus) Current Visit: Yes Status: Chronic Qualifiers: Viral hepatitis chronicity: unspecified (12) Hypertension Current Visit: Yes Status: Chronic Qualifiers: Hypertension type: essential hypertension Qualified Code(s): I10 - Essential (primary) hypertension (13) Asthma Current Visit: Yes Status: Chronic (14) Seizure disorder Current Visit: Yes Status: Chronic - Initial Treatment Plan Initial Treatment Plan: 1) Continue Effexor 75 mg po daily, Abilify 2 mg po daily and Trazadone 100 mg po HS. 2) Start Vistaril 50 mg po Q 4hrs prn for anxiety. 3) Monitor progress
[2017-06-30] MEDS: INSULIN SLIDING SCALE (NOVOLOG) 1 VIAL SQ SCH ×4 (07:30→21:59)
[2017-06-30] MEDS: METHADONE HCL 10 MG TABLET PO SCH (07:46)
[2017-06-30] MEDS: TAMSULOSIN HCL 0.4 MG CAP.ER.24H (FP) PO SCH (10:37)
[2017-06-30] MEDS: PRENATAL VITAMINS W/ FOLIC ACID TABLET (FP) PO SCH (10:37)
[2017-06-30] MEDS: ASPIRIN COATED 81 MG TABLET.EC PO SCH (10:37)
[2017-06-30] MEDS: NICOTINE 14 MG/24 HOURS TOPICAL PATCH TD SCH (10:37)
[2017-06-30] MEDS: VENLAFAXINE HCL 75 MG TABLET PO SCH (14:23)
[2017-06-30] MEDS: ARIPiprazole 2 MG TABLET PO SCH (14:23)
[2017-06-30] MEDS: traZODone HCL 100 MG TABLET (FP) PO SCH (21:59)
[2017-06-30] MEDS ORDERED: GABAPENTIN 300 MG CAPSULE (FP) PO SCH (22:00)
[2017-07-01] MEDS: FUROSEMIDE 40 MG TABLET (FP) PO SCH ×2 (06:22→14:37)
[2017-07-01] MEDS: METHADONE HCL 10 MG TABLET PO SCH (06:22)
[2017-07-01] MEDS: INSULIN SLIDING SCALE (NOVOLOG) 1 VIAL SQ SCH ×4 (07:15→22:14)
[2017-07-01] MEDS ORDERED: ASPIRIN 325 MG ENTERIC COATED TABLET (FP) PO SCH (10:00)
[2017-07-01] MEDS: LABETALOL HCL 100 MG TABLET (FP) PO SCH ×2 (10:45→22:13)
[2017-07-01] MEDS: VENLAFAXINE HCL 75 MG TABLET PO SCH (10:45)
[2017-07-01] MEDS: ARIPiprazole 2 MG TABLET PO SCH (10:45)
[2017-07-01] MEDS: levETIRAcetam 500 MG TABLET (FP) PO SCH ×2 (10:45→22:13)
[2017-07-01] MEDS: TAMSULOSIN HCL 0.4 MG CAP.ER.24H (FP) PO SCH (10:45)
[2017-07-01] MEDS: NICOTINE 14 MG/24 HOURS TOPICAL PATCH TD SCH (10:45)
[2017-07-01] MEDS ORDERED: PT OWN MED DRAWER 7, Y5N ONE ×4 (10:46→15:00)
[2017-07-01] MEDS: PRENATAL VITAMINS W/ FOLIC ACID TABLET (FP) PO SCH (10:46)
[2017-07-01] MEDS: ALBUTEROL SO4 18 GM HFA INHALER IH PRN (10:48)
[2017-07-01] MEDS: ASPIRIN COATED 81 MG TABLET.EC PO SCH (11:35)
[2017-07-01] MEDS: ASPIRIN 325 MG ENTERIC COATED TABLET (FP) PO SCH (11:37)
[2017-07-01] MEDS: traZODone HCL 100 MG TABLET (FP) PO SCH (22:13)
[2017-07-01] MEDS: THIAMINE HCL 100 MG TABLET (FP) PO SCH (22:13)
[2017-07-02] MEDS: FUROSEMIDE 40 MG TABLET (FP) PO SCH ×2 (06:26→14:31)
[2017-07-02] MEDS: METHADONE HCL 10 MG TABLET PO SCH (06:26)
[2017-07-02] MEDS: INSULIN SLIDING SCALE (NOVOLOG) 1 VIAL SQ SCH ×2 (07:13→12:01)
[2017-07-02] MEDS: ALBUTEROL SO4 18 GM HFA INHALER IH PRN (07:22)
[2017-07-02] MEDS ORDERED: PT OWN MED DRAWER 7, Y5N ONE (09:02)
[2017-07-02] MEDS: VENLAFAXINE HCL 75 MG TABLET PO SCH (10:25)
[2017-07-02] MEDS: PRENATAL VITAMINS W/ FOLIC ACID TABLET (FP) PO SCH (10:25)
[2017-07-02] MEDS: levETIRAcetam 500 MG TABLET (FP) PO SCH ×2 (10:25→21:36)
[2017-07-02] MEDS: TAMSULOSIN HCL 0.4 MG CAP.ER.24H (FP) PO SCH (10:26)
[2017-07-02] MEDS: LABETALOL HCL 100 MG TABLET (FP) PO SCH ×2 (10:26→21:36)
[2017-07-02] MEDS: ASPIRIN 325 MG ENTERIC COATED TABLET (FP) PO SCH (10:26)
[2017-07-02] MEDS: NICOTINE 14 MG/24 HOURS TOPICAL PATCH TD SCH (10:27)
[2017-07-02] MEDS: ARIPiprazole 2 MG TABLET PO SCH (10:28)
[2017-07-02] MEDS: traZODone HCL 100 MG TABLET (FP) PO SCH (21:36)
[2017-07-02] MEDS: THIAMINE HCL 100 MG TABLET (FP) PO SCH (21:36)
[2017-07-03] MEDS: FUROSEMIDE 40 MG TABLET (FP) PO SCH ×2 (06:17→13:03)
[2017-07-03] MEDS: METHADONE HCL 10 MG TABLET PO SCH (06:17)
[2017-07-03] MEDS: ALBUTEROL SO4 18 GM HFA INHALER IH PRN (06:20)
[2017-07-03] MEDS: VENLAFAXINE HCL 75 MG TABLET PO SCH (10:07)
[2017-07-03] MEDS: NICOTINE 14 MG/24 HOURS TOPICAL PATCH TD SCH (10:08)
[2017-07-03] MEDS: ARIPiprazole 2 MG TABLET PO SCH (10:08)
[2017-07-03] MEDS: levETIRAcetam 500 MG TABLET (FP) PO SCH ×2 (10:08→21:33)
[2017-07-03] MEDS: LABETALOL HCL 100 MG TABLET (FP) PO SCH ×2 (10:08→21:33)
[2017-07-03] MEDS: PRENATAL VITAMINS W/ FOLIC ACID TABLET (FP) PO SCH (10:08)
[2017-07-03] MEDS: TAMSULOSIN HCL 0.4 MG CAP.ER.24H (FP) PO SCH (10:08)
[2017-07-03] MEDS: ASPIRIN 325 MG ENTERIC COATED TABLET (FP) PO SCH (10:55)
[2017-07-03] MEDS: traZODone HCL 100 MG TABLET (FP) PO SCH (21:33)
[2017-07-03] MEDS: THIAMINE HCL 100 MG TABLET (FP) PO SCH (21:33)
[2017-07-04] MEDS: METHADONE HCL 10 MG TABLET PO SCH (06:04)
[2017-07-04] MEDS: FUROSEMIDE 40 MG TABLET (FP) PO SCH ×2 (06:05→14:07)
[2017-07-04] MEDS: VENLAFAXINE HCL 75 MG TABLET PO SCH (10:06)
[2017-07-04] MEDS: ARIPiprazole 2 MG TABLET PO SCH (10:06)
[2017-07-04] MEDS: NICOTINE 14 MG/24 HOURS TOPICAL PATCH TD SCH (10:07)
[2017-07-04] MEDS: TAMSULOSIN HCL 0.4 MG CAP.ER.24H (FP) PO SCH (10:07)
[2017-07-04] MEDS: levETIRAcetam 500 MG TABLET (FP) PO SCH ×2 (10:07→21:45)
[2017-07-04] MEDS: LABETALOL HCL 100 MG TABLET (FP) PO SCH ×2 (10:07→21:46)
[2017-07-04] MEDS: PRENATAL VITAMINS W/ FOLIC ACID TABLET (FP) PO SCH (10:07)
[2017-07-04] MEDS: ASPIRIN 325 MG ENTERIC COATED TABLET (FP) PO SCH (10:07)
[2017-07-04] MEDS: THIAMINE HCL 100 MG TABLET (FP) PO SCH (21:45)
[2017-07-04] MEDS: traZODone HCL 100 MG TABLET (FP) PO SCH (21:46)
[2017-07-05] MEDS: FUROSEMIDE 40 MG TABLET (FP) PO SCH ×2 (06:08→14:28)
[2017-07-05] MEDS: METHADONE HCL 10 MG TABLET PO SCH (06:08)
[2017-07-05] MEDS: PRENATAL VITAMINS W/ FOLIC ACID TABLET (FP) PO SCH (10:23)
[2017-07-05] MEDS: LABETALOL HCL 100 MG TABLET (FP) PO SCH ×2 (10:23→21:47)
[2017-07-05] MEDS: ARIPiprazole 2 MG TABLET PO SCH (10:24)
[2017-07-05] MEDS: levETIRAcetam 500 MG TABLET (FP) PO SCH ×2 (10:24→21:47)
[2017-07-05] MEDS: TAMSULOSIN HCL 0.4 MG CAP.ER.24H (FP) PO SCH (10:24)
[2017-07-05] MEDS: VENLAFAXINE HCL 75 MG TABLET PO SCH (10:24)
[2017-07-05] MEDS: ASPIRIN 325 MG ENTERIC COATED TABLET (FP) PO SCH (10:26)
[2017-07-05] MEDS ORDERED: PT OWN MED DRAWER 7, Y5N ONE (10:26)
[2017-07-05] MEDS: NICOTINE 14 MG/24 HOURS TOPICAL PATCH TD SCH (10:27)
[2017-07-05] MEDS: traZODone HCL 100 MG TABLET (FP) PO SCH (21:47)
[2017-07-05] MEDS: THIAMINE HCL 100 MG TABLET (FP) PO SCH (21:47)
[2017-07-06] MEDS: METHADONE HCL 10 MG TABLET PO SCH (06:10)
[2017-07-06] MEDS: FUROSEMIDE 40 MG TABLET (FP) PO SCH ×2 (06:10→14:50)
[2017-07-06] MEDS: PRENATAL VITAMINS W/ FOLIC ACID TABLET (FP) PO SCH (10:19)
[2017-07-06] MEDS: levETIRAcetam 500 MG TABLET (FP) PO SCH ×2 (10:19→21:43)
[2017-07-06] MEDS: NICOTINE 14 MG/24 HOURS TOPICAL PATCH TD SCH (10:20)
[2017-07-06] MEDS: VENLAFAXINE HCL 75 MG TABLET PO SCH (10:20)
[2017-07-06] MEDS: LABETALOL HCL 100 MG TABLET (FP) PO SCH ×2 (10:20→21:43)
[2017-07-06] MEDS: ASPIRIN 325 MG ENTERIC COATED TABLET (FP) PO SCH (10:20)
[2017-07-06] MEDS: TAMSULOSIN HCL 0.4 MG CAP.ER.24H (FP) PO SCH (10:20)
[2017-07-06] MEDS: ARIPiprazole 2 MG TABLET PO SCH (10:20)
[2017-07-06] MEDS: ALBUTEROL SO4 18 GM HFA INHALER IH PRN (10:21)
[2017-07-06] MEDS: THIAMINE HCL 100 MG TABLET (FP) PO SCH (21:43)
[2017-07-06] MEDS: traZODone HCL 100 MG TABLET (FP) PO SCH (21:43)
[2017-07-07] MEDS: METHADONE HCL 10 MG TABLET PO SCH (05:59)
[2017-07-07] MEDS: FUROSEMIDE 40 MG TABLET (FP) PO SCH ×2 (05:59→14:22)
[2017-07-07] MEDS: levETIRAcetam 500 MG TABLET (FP) PO SCH ×2 (10:11→22:21)
[2017-07-07] MEDS: VENLAFAXINE HCL 75 MG TABLET PO SCH (10:11)
[2017-07-07] MEDS: LABETALOL HCL 100 MG TABLET (FP) PO SCH ×2 (10:11→22:21)
[2017-07-07] MEDS: TAMSULOSIN HCL 0.4 MG CAP.ER.24H (FP) PO SCH (10:11)
[2017-07-07] MEDS: NICOTINE 14 MG/24 HOURS TOPICAL PATCH TD SCH (10:11)
[2017-07-07] MEDS: PRENATAL VITAMINS W/ FOLIC ACID TABLET (FP) PO SCH (10:11)
[2017-07-07] MEDS: ARIPiprazole 2 MG TABLET PO SCH (10:12)
[2017-07-07] MEDS: ASPIRIN 325 MG ENTERIC COATED TABLET (FP) PO SCH (10:12)
[2017-07-07] MEDS: THIAMINE HCL 100 MG TABLET (FP) PO SCH (22:21)
[2017-07-07] MEDS: traZODone HCL 100 MG TABLET (FP) PO SCH (22:21)
[2017-07-08] MEDS: FUROSEMIDE 40 MG TABLET (FP) PO SCH ×2 (06:31→14:26)
[2017-07-08] MEDS: METHADONE HCL 10 MG TABLET PO SCH (06:32)
[2017-07-08] MEDS: TAMSULOSIN HCL 0.4 MG CAP.ER.24H (FP) PO SCH (09:46)
[2017-07-08] MEDS: VENLAFAXINE HCL 75 MG TABLET PO SCH (09:46)
[2017-07-08] MEDS: levETIRAcetam 500 MG TABLET (FP) PO SCH ×2 (09:46→21:46)
[2017-07-08] MEDS: LABETALOL HCL 100 MG TABLET (FP) PO SCH ×2 (09:46→21:47)
[2017-07-08] MEDS: NICOTINE 14 MG/24 HOURS TOPICAL PATCH TD SCH (09:46)
[2017-07-08] MEDS: PRENATAL VITAMINS W/ FOLIC ACID TABLET (FP) PO SCH (09:46)
[2017-07-08] MEDS: ARIPiprazole 2 MG TABLET PO SCH (09:46)
[2017-07-08] MEDS: ASPIRIN 325 MG ENTERIC COATED TABLET (FP) PO SCH (09:46)
[2017-07-08] MEDS: ALBUTEROL SO4 18 GM HFA INHALER IH PRN (09:48)
[2017-07-08] MEDS: traZODone HCL 100 MG TABLET (FP) PO SCH (21:47)
[2017-07-08] MEDS: THIAMINE HCL 100 MG TABLET (FP) PO SCH (21:47)
[2017-07-09] MEDS: FUROSEMIDE 40 MG TABLET (FP) PO SCH ×2 (06:03→15:22)
[2017-07-09] MEDS: METHADONE HCL 10 MG TABLET PO SCH (06:03)
[2017-07-09] MEDS: NICOTINE 14 MG/24 HOURS TOPICAL PATCH TD SCH (10:25)
[2017-07-09] MEDS: TAMSULOSIN HCL 0.4 MG CAP.ER.24H (FP) PO SCH (10:25)
[2017-07-09] MEDS: ASPIRIN 325 MG ENTERIC COATED TABLET (FP) PO SCH (10:25)
[2017-07-09] MEDS: PRENATAL VITAMINS W/ FOLIC ACID TABLET (FP) PO SCH (10:25)
[2017-07-09] MEDS: levETIRAcetam 500 MG TABLET (FP) PO SCH ×2 (10:26→21:15)
[2017-07-09] MEDS: LABETALOL HCL 100 MG TABLET (FP) PO SCH ×2 (10:26→21:15)
[2017-07-09] MEDS: VENLAFAXINE HCL 75 MG TABLET PO SCH (10:26)
[2017-07-09] MEDS: ARIPiprazole 2 MG TABLET PO SCH (10:27)
[2017-07-09] MEDS ORDERED: COLLOIDAL OATMEAL 1 BAR EACH TP PRN (12:16)
[2017-07-09] MEDS ORDERED: AMMONIUM LACTATE 12% LOTION 225 GM BOTTLE TP PRN (12:16)
[2017-07-09] MEDS: ALBUTEROL SO4 18 GM HFA INHALER IH PRN (13:19)
[2017-07-09] MEDS: THIAMINE HCL 100 MG TABLET (FP) PO SCH (21:15)
[2017-07-09] MEDS: traZODone HCL 100 MG TABLET (FP) PO SCH (21:15)
[2017-07-10] MEDS: FUROSEMIDE 40 MG TABLET (FP) PO SCH ×2 (06:07→14:41)
[2017-07-10] MEDS: METHADONE HCL 10 MG TABLET PO SCH (06:07)
[2017-07-10] MEDS: PRENATAL VITAMINS W/ FOLIC ACID TABLET (FP) PO SCH (10:23)
[2017-07-10] MEDS: levETIRAcetam 500 MG TABLET (FP) PO SCH ×2 (10:23→21:58)
[2017-07-10] MEDS: NICOTINE 14 MG/24 HOURS TOPICAL PATCH TD SCH (10:23)
[2017-07-10] MEDS: VENLAFAXINE HCL 75 MG TABLET PO SCH (10:23)
[2017-07-10] MEDS: LABETALOL HCL 100 MG TABLET (FP) PO SCH ×2 (10:23→21:58)
[2017-07-10] MEDS: ASPIRIN 325 MG ENTERIC COATED TABLET (FP) PO SCH (10:23)
[2017-07-10] MEDS: TAMSULOSIN HCL 0.4 MG CAP.ER.24H (FP) PO SCH (10:23)
[2017-07-10] MEDS: ARIPiprazole 2 MG TABLET PO SCH (10:23)
[2017-07-10] MEDS: traZODone HCL 100 MG TABLET (FP) PO SCH (21:58)
[2017-07-10] MEDS: THIAMINE HCL 100 MG TABLET (FP) PO SCH (21:58)
[2017-07-11] MEDS: FUROSEMIDE 40 MG TABLET (FP) PO SCH ×2 (06:03→14:18)
[2017-07-11] MEDS: METHADONE HCL 10 MG TABLET PO SCH (06:03)
[2017-07-11] MEDS: PRENATAL VITAMINS W/ FOLIC ACID TABLET (FP) PO SCH (10:17)
[2017-07-11] MEDS: ASPIRIN 325 MG ENTERIC COATED TABLET (FP) PO SCH (10:18)
[2017-07-11] MEDS: LABETALOL HCL 100 MG TABLET (FP) PO SCH ×2 (10:19→21:17)
[2017-07-11] MEDS: NICOTINE 14 MG/24 HOURS TOPICAL PATCH TD SCH (10:19)
[2017-07-11] MEDS: TAMSULOSIN HCL 0.4 MG CAP.ER.24H (FP) PO SCH (10:19)
[2017-07-11] MEDS: levETIRAcetam 500 MG TABLET (FP) PO SCH ×2 (10:19→21:17)
[2017-07-11] MEDS: ARIPiprazole 2 MG TABLET PO SCH (10:19)
[2017-07-11] MEDS: VENLAFAXINE HCL 75 MG TABLET PO SCH (10:19)
[2017-07-11] MEDS: THIAMINE HCL 100 MG TABLET (FP) PO SCH (21:16)
[2017-07-11] MEDS: traZODone HCL 100 MG TABLET (FP) PO SCH (21:17)
[2017-07-12] MEDS: METHADONE HCL 10 MG TABLET PO SCH (05:56)
[2017-07-12] MEDS: FUROSEMIDE 40 MG TABLET (FP) PO SCH ×2 (05:56→13:34)
[2017-07-12] MEDS: diphenhydrAMINE HCL 25 MG CAPSULE (FP) PO PRN (07:49)
[2017-07-12] MEDS: levETIRAcetam 500 MG TABLET (FP) PO SCH ×2 (10:12→21:15)
[2017-07-12] MEDS: ASPIRIN 325 MG ENTERIC COATED TABLET (FP) PO SCH (10:12)
[2017-07-12] MEDS: VENLAFAXINE HCL 75 MG TABLET PO SCH (10:12)
[2017-07-12] MEDS: ARIPiprazole 2 MG TABLET PO SCH (10:12)
[2017-07-12] MEDS: NICOTINE 14 MG/24 HOURS TOPICAL PATCH TD SCH (10:12)
[2017-07-12] MEDS: TAMSULOSIN HCL 0.4 MG CAP.ER.24H (FP) PO SCH (10:12)
[2017-07-12] MEDS: PRENATAL VITAMINS W/ FOLIC ACID TABLET (FP) PO SCH (10:12)
[2017-07-12] MEDS: LABETALOL HCL 100 MG TABLET (FP) PO SCH ×2 (10:13→21:15)
[2017-07-12] MEDS: THIAMINE HCL 100 MG TABLET (FP) PO SCH (21:15)
[2017-07-12] MEDS: traZODone HCL 100 MG TABLET (FP) PO SCH (21:15)
[2017-07-13] MEDS: METHADONE HCL 10 MG TABLET PO SCH (06:34)
[2017-07-13] MEDS: FUROSEMIDE 40 MG TABLET (FP) PO SCH ×2 (06:34→16:59)
[2017-07-13] MEDS: ARIPiprazole 2 MG TABLET PO SCH (10:14)
[2017-07-13] MEDS: ASPIRIN 325 MG ENTERIC COATED TABLET (FP) PO SCH (10:14)
[2017-07-13] MEDS: PRENATAL VITAMINS W/ FOLIC ACID TABLET (FP) PO SCH (10:14)
[2017-07-13] MEDS: TAMSULOSIN HCL 0.4 MG CAP.ER.24H (FP) PO SCH (10:15)
[2017-07-13] MEDS: LABETALOL HCL 100 MG TABLET (FP) PO SCH ×2 (10:15→21:47)
[2017-07-13] MEDS: NICOTINE 14 MG/24 HOURS TOPICAL PATCH TD SCH (10:15)
[2017-07-13] MEDS: levETIRAcetam 500 MG TABLET (FP) PO SCH ×2 (10:15→21:47)
[2017-07-13] MEDS: VENLAFAXINE HCL 75 MG TABLET PO SCH (10:15)
[2017-07-13] MEDS: THIAMINE HCL 100 MG TABLET (FP) PO SCH (21:47)
[2017-07-13] MEDS: traZODone HCL 100 MG TABLET (FP) PO SCH (21:47)
[2017-07-13] MEDS: diphenhydrAMINE HCL 25 MG CAPSULE (FP) PO PRN (21:49)
[2017-07-14] MEDS: METHADONE HCL 10 MG TABLET PO SCH (06:00)
[2017-07-14] MEDS: FUROSEMIDE 40 MG TABLET (FP) PO SCH (06:01)
[2017-07-14 07:04] VITALS: BP 151/76; PULSE 77; TEMP 98.6
--- NOTE | 2017-07-14 08:59 | PN ---
Psychiatric Progress Note Vital Signs: Vital Signs Period Temp Pulse Resp BP Sys/Conte Pulse Ox Last 24 Hr 98.6 F 67-77 16-18 127-151/76-85 Date of Session: 07/14/17 Chief Complaint:: Discharge Note HPI: Patient addressing Alcohol and Sedative Dependence comorbid with Opoid Dependence on Agonist Therapy, Nicotine Dependence, Depressive Disorder and Substance-induced Sleep Diorder ROS: HTN, DM, Hep C, Asthma, CKD Current Medications: Active Medications Generic Name Dose Route Start Last Admin Trade Name Freq PRN Reason Stop Dose Admin Acetaminophen 650 mg 06/29/17 21:59 07/11/17 07:06 Tylenol - PO 650 mg Q4H PRN Administration FEVER OR PAIN Al Hydroxide/Mg Hydroxide 30 ml 06/29/17 21:59 07/04/17 06:53 Mylanta Oral Suspension - PO 30 ml Q6H PRN Administration DYSPEPSIA Albuterol Sulfate 2 puff 06/29/17 22:04 07/09/17 13:19 Ventolin Hfa Inhaler - IH 2 puff Q6H PRN Administration WHEEZING Aripiprazole 2 mg 06/30/17 11:00 07/13/17 10:14 Abilify PO 2 mg DAILY SARMAD Administration Aspirin 325 mg 07/01/17 11:31 07/13/17 10:14 Ecotrin - PO 325 mg DAILY SARMAD Administration Colloidal Oatmeal 1 applic 07/09/17 12:16 07/11/17 10:21 Aveeno Soap - TP 1 applic DAILY PRN Administration HYGEINE Diphenhydramine HCl 25 mg 07/02/17 12:47 07/13/17 21:49 Benadryl - PO 25 mg Q6H PRN Administration FOR ITCHING Eucalyptus/Menthol/Phenol/Sorbitol 1 each 06/29/17 21:59 Cepastat Lozenge - MM Q4H PRN SORE THROAT Furosemide 40 mg 06/30/17 06:00 07/14/17 06:01 Lasix - PO Not Given BIDLASIX SARMAD Ibuprofen 400 mg 06/29/17 21:59 07/12/17 07:46 Motrin - PO 400 mg Q6H PRN Administration PAIN Labetalol HCl 100 mg 06/29/17 22:15 07/13/17 21:47 Normodyne - PO 100 mg BID SARMAD Administration Lactic Acid 1 applic 07/09/17 12:16 Lac-Hydrin 12 TP DAILY PRN DRY SKIN Levetiracetam 500 mg 06/29/17 22:15 07/13/17 21:47 Keppra - PO 500 mg BID SARMAD Administration Loperamide HCl 4 mg 06/29/17 21:59 Imodium - PO Q6H PRN DIARRHEA Magnesium Citrate 300 ml 06/29/17 21:59 Citroma - PO Q48H PRN CONSTIPATION Magnesium Hydroxide 30 ml 06/29/17 21:59 Milk Of Magnesia - PO DAILY PRN CONSTIPATION Methadone HCl 30 mg 07/12/17 06:00 07/14/17 06:00 Dolophine - PO 07/19/17 05:59 30 mg DAILY@0600 SARMAD Administration Nicotine 14 mg 06/30/17 10:00 07/13/17 10:15 Nicoderm Patch - TD 14 mg DAILY SARMAD Administration Nicotine Polacrilex 2 mg 06/29/17 21:59 Nicorette Gum - BUC Q2H PRN NICOTINE REPLACEMENT RX Multivit/Folic Acid/Iron 1 tab 06/30/17 10:00 07/13/17 10:14 Vitamins (Sjr) - PO 1 tab DAILY SARMAD Administration Tamsulosin HCl 0.4 mg 06/30/17 10:00 07/13/17 10:15 Flomax - PO 0.4 mg DAILY SARMAD Administration Thiamine HCl 100 mg 06/29/17 22:00 07/13/17 21:47 Vitamin B1 - PO 100 mg HS SARMAD Administration Trazodone HCl 100 mg 06/30/17 22:00 07/13/17 21:47 Desyrel - PO 100 mg HS SARMAD Administration Venlafaxine HCl 75 mg 06/30/17 11:00 07/13/17 10:15 Effexor - PO 75 mg DAILY SARMAD Administration Current Side Effect: No Lab tests ordered: Yes Lab tests reviewed: Yes Provider note:: Patient has completed this program today. He has met his treatment goals and will continue to address his issues in outpatient treatment at [facility] at [address] [place] [address].Told com writer that from his participation in this program, he has learned to surround himself with positive people and make meetings. He responded well to Effexor XR 75 mg po daily, Abilify 2 mg po daily and Trazadone 100 mg po HS. Scripts for 30 days supply of these medications are electronicaly transmitted to [facility] at [id number] [id number]. He is stable for discharge today Total face to face time:: 35 Mental Status Exam - Mental Status Exam Alert and Oriented to: Time, Place, Person Cognitive Function: Fair Patient Appearance: Well Groomed Mood: Hopeful, Euthymic Affect: Appropriate Patient Behavior: Cooperative Speech Pattern: Clear Voice Loudness: Normal Thought Process: Intact Thought Disorder: Not Present Hallucinations: Denies Suicidal Ideation: Denies Homicidal Ideation: Denies Insight/Judgement: Fair Sleep: Fair Appetite: Good Muscle strength/Tone: Normal Gait/Station: Normal Psychiatric Treatment Plan - Problem List (1) Alcohol dependence Current Visit: Yes (2) Sedative hypnotic or anxiolytic dependence Current Visit: Yes (3) Opioid dependence on agonist therapy Current Visit: Yes (4) Nicotine dependence Current Visit: Yes Qualifiers: Nicotine product type: cigarettes Substance use status: uncomplicated Qualified Code(s): F17.210 - Nicotine dependence, cigarettes, uncomplicated (5) Depressive disorder Current Visit: Yes (6) MDD (major depressive disorder) Current Visit: Yes (7) Substance induced mood disorder Current Visit: Yes (8) Substance-induced sleep disorder Current Visit: Yes (9) CKD (chronic kidney disease) Current Visit: Yes Qualifiers: Chronic kidney disease stage: unspecified stage Qualified Code(s): N18.9 - Chronic kidney disease, unspecified (10) Diabetes mellitus due to underlying condition, controlled Current Visit: Yes Qualifiers: Diabetes mellitus complication status: without complication Diabetes mellitus [facility] insulin use: 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
[2017-07-14] MEDS: TAMSULOSIN HCL 0.4 MG CAP.ER.24H (FP) PO SCH (09:15)
[2017-07-14] MEDS: ASPIRIN 325 MG ENTERIC COATED TABLET (FP) PO SCH (09:15)
[2017-07-14] MEDS: PRENATAL VITAMINS W/ FOLIC ACID TABLET (FP) PO SCH (09:15)
[2017-07-14] MEDS: LABETALOL HCL 100 MG TABLET (FP) PO SCH (09:16)
[2017-07-14] MEDS: NICOTINE 14 MG/24 HOURS TOPICAL PATCH TD SCH (09:16)
[2017-07-14] MEDS: levETIRAcetam 500 MG TABLET (FP) PO SCH (09:16)
[2017-07-14] MEDS: VENLAFAXINE HCL 75 MG TABLET PO SCH (09:17)
[2017-07-14] MEDS: ARIPiprazole 2 MG TABLET PO SCH (09:18)
== END 2017-07-14 09:25 | disposition home or self-care (01) | DRG 772 ==
LOC: YASAS 20:56 → Y3W 22:22
PROVIDERS: ADMIT Psychiatry & Neurology Psychiatry; ATTEND Psychiatry & Neurology Psychiatry
PROC: HZ42ZZZ Group Counseling for Substance Abuse Treatment, Cognitive-Behavioral (ICD-10-PCS; principal; 2017-06-29)
DX: F13.20 Sedative, hypnotic or anxiolytic dependence, uncomplicated (principal); F11.20 Opioid dependence, uncomplicated; F10.20 Alcohol dependence, uncomplicated; F17.210 Nicotine dependence, cigarettes, uncomplicated; F33.9 Major depressive disorder, recurrent, unspecified; F19.24 Other psychoactive substance dependence with psychoactive substance-induced mood disorder; F19.282 Other psychoactive substance dependence with psychoactive substance-induced sleep disorder; I12.9 Hypertensive chronic kidney disease with stage 1 through stage 4 chronic kidney disease, or unspecified chronic kidney disease; E11.22 Type 2 diabetes mellitus with diabetic chronic kidney disease; N18.9 Chronic kidney disease, unspecified; B18.2 Chronic viral hepatitis C; J45.909 Unspecified asthma, uncomplicated; G40.909 Epilepsy, unspecified, not intractable, without status epilepticus; Z91.013 Allergy to seafood